=== PATIENT | female | born 1975 | race Caucasian/White ===

== ENCOUNTER 2018-09-27 03:24 | Emergency (ER) | payer OTHER ==
[~2018-09-27] VITALS: Ht 167.6 cm; Wt 106.1 kg
[~2018-09-27 03:24] MED LIST: ALOG1TAB5 PO; DIAZ5TAB4 PO; GABA-586 PO; GABA300C8; LANS30CA66 PO; LISI-334 PO; LISI-338 PO; METF500T16 PO; METH10TA2 PO; MILN50TA PO; PHEN37.5 PO; PROM25TA10 PO
--- NOTE | 2018-09-27 03:31 | ED.ADGEN ---
Past History Past Medical History: Anxiety, Bronchitis, Depression, Diabetes, Fibromyalgia, Hypertension, IBS, Migraines, UTI, Other Past Surgical History: , Other Smoking: Cigarettes Alcohol Use: None Drug Use: None Adult General Chief Complaint Chief Complaint ".. My jaw is killing ,,,,, my face is swollen... my teeth in the back have rotted into my gums.. .. I feel like shit.. .. fever.. chest pain.. my sugars are probably up.. it 's my fault.. . I know.. I quit taking my meds... because ... I was tired of taking.. .. them....." .." I ve got severe fibromyalgia. .. " HPI HPI Patient is a 42 year old female who presents with above hx of multiple complaints with primary complaints of dental pain. Pt. has decay of teeth 17, 18 into the gums and surrounding edema. Pt. has multiple other areas of decay. Pt. has facial edema and adenopathy at angle mandible on Lt. Pt. hx HTN, DM, MS, Fibromyalgia, Depression, Anxiety and Non-compliance. Pt. follows with Dr. Higuera. Pt. states her tetanus was up dated last year. Pt. denies any specific immunosuppression disorder, hx trauma, recent travel or ill contacts. Pt. is some what poor historian. Pt. very emotional and at times uncooperative. Pt was eating before arrival and that was what causes her increased dental pain. Review of Systems Review of Systems Constitutional: Complaints of fever or chills [] Eyes: Denies change in visual acuity, redness, or eye pain [] HENT: Denies nasal congestion or sore throat []Complaints of dental pain. Respiratory: Complaints of wheezing and cough Cardiovascular: No additional information not addressed in HPI [] GI: Denies abdominal pain, nausea, vomiting, bloody stools or diarrhea [] : Denies dysuria or hematuria [] Musculoskeletal: Complaints of generalized fibromyalgia , entire body, back pain and joint pain [] Integument: Denies rash or skin lesions [] Neurologic: Denies headache, focal weakness or sensory changes [] Endocrine: Denies polyuria or polydipsia [] All other systems were reviewed and found to be within normal limits, except as documented in this note. Family History Family History DM, HTN Current Medications Current Medications Current Medications Medications (Trade) Dose Ordered Sig/Diaz Start Time Stop Time Status Last Admin Dose Admin Ceftriaxone Sodium (Rocephin Im) 1 gm 1X ONCE 09/27/18 04:00 09/27/18 04:01 DC 09/27/18 03:56 1 GM Hydrocodone Bitartrate/ Ibuprofen (Vicoprofen 7.5-200) 2 tab 1X ONCE 09/27/18 04:30 09/27/18 04:31 DC 09/27/18 05:07 2 TAB Insulin Human Regular (HumuLIN R VIAL) 10 unit 1X ONCE 09/27/18 05:30 09/27/18 05:31 DC 09/27/18 05:34 10 UNIT Lactated Ringer's 1,000 ml @ 1,000 mls/hr Q1H 09/27/18 04:00 09/27/18 04:59 DC 09/27/18 04:37 1,000 MLS/HR Lidocaine HCl 20 ml 1X ONCE 09/27/18 04:30 09/27/18 04:31 DC 09/27/18 04:39 20 ML Lisinopril (Prinivil) 10 mg 1X ONCE 09/27/18 04:00 09/27/18 04:01 DC 09/27/18 04:36 10 MG Magnesium Hydroxide (Milk Of Magnesia) 2,400 mg 1X ONCE 09/27/18 05:30 09/27/18 05:31 DC 09/27/18 05:30 2,400 MG Metronidazole 100 ml @ 100 mls/hr 1X ONCE 09/27/18 04:00 09/27/18 04:59 DC 09/27/18 04:37 100 MLS/HR Morphine Sulfate (Morphine 10mg Syringe) 10 mg 1X ONCE 09/27/18 04:00 09/27/18 04:01 DC 09/27/18 03:49 10 MG Ondansetron HCl (Zofran) 8 mg 1X ONCE 09/27/18 05:30 09/27/18 05:31 DC 09/27/18 05:31 8 MG Allergies Allergies Allergies Coded Allergies Type Severity Reaction Last Updated Verified No Known Drug Allergies 08/19/14 No Physical Exam Physical Exam Constitutional: Reports acute distress, non-toxic appearance. [] HENT: Normocephalic, atraumatic, bilateral external ears normal, oropharynx moist, no oral exudates, nose normal. []Multiple dental caries and gingivitis. Mild Lt.Facial edema. Adenopathy mandible angle lt. Pt. has increased pain on percussion of area of t teeth 17 &18 (decay into gum line). Eyes: PERRLA, EOMI, conjunctiva normal, no discharge. [] Neck: Normal range of motion, no tenderness, supple, no stridor. [] Cardiovascular:Heart rate regular rhythm, no murmur []PMI to Lt. Lungs & Thorax: Bilateral breath sounds equal with scattered wheezes on a uscultation [] Abdomen: Bowel sounds normal, soft, no tenderness, no masses, no pulsatile masses. [] Obese. Old scar. Distended. Skin: Warm, dry, no erythema, no rash. [] Back: No tenderness, no CVA tenderness. [] Extremities: Pt. reports all her limbs are constantly tender for years, , no cyanosis, no clubbing, ROM intact, no edema. [] Large scar. lt savage. Neurologic: Alert and oriented X 3, normal motor function, normal sensory function, no focal deficits noted. [] Psychologic: Affect anxious, judgement normal, mood depressed. Very emotional and dramatic in complaints. Current Patient Data Vital Signs Vital Signs Date Time Temp Pulse Resp B/P (MAP) Pulse Ox O2 Delivery O2 Flow Rate FiO2 09/27/18 06:02 99 18 99 09/27/18 04:36 184/114 09/27/18 03:49 Room Air 09/27/18 03:25 98.7 Lab Results Laboratory Tests Test 09/27/18 04:10 09/27/18 05:00 09/27/18 05:21 09/27/18 05:31 White Blood Count 12.5 x10^3/uL (4.0-11.0) H Red Blood Count 4.71 x10^6/uL (3.50-5.40) Hemoglobin 14.1 g/dL (12.0-15.5) Hematocrit 43.5 % (36.0-47.0) Mean Corpuscular Volume 92 fL (79-100) Mean Corpuscular Hemoglobin 30 pg (25-35) Mean Corpuscular Hemoglobin Concent 32 g/dL (31-37) Red Cell Distribution Width 14.8 % (11.5-14.5) H Platelet Count 163 x10^3/uL (140-400) Neutrophils (%) (Auto) 62 % (31-73) Lymphocytes (%) (Auto) 30 % (24-48) Monocytes (%) (Auto) 6 % (0-9) Eosinophils (%) (Auto) 2 % (0-3) Basophils (%) (Auto) 1 % (0-3) Neutrophils # (Auto) 7.7 x10^3uL (1.8-7.7) Lymphocytes # (Auto) 3.7 x10^3/uL (1.0-4.8) Monocytes # (Auto) 0.8 x10^3/uL (0.0-1.1) Eosinophils # (Auto) 0.2 x10^3/uL (0.0-0.7) Basophils # (Auto) 0.1 x10^3/uL (0.0-0.2) Prothrombin Time 9.9 SEC (9.4-11.4) Prothrombin Time INR 1.0 (0.9-1.1) PTT 24 SEC (23-33) Sodium Level 137 mmol/L (136-145) Potassium Level 4.2 mmol/L (3.5-5.1) Chloride Level 99 mmol/L (98-107) Carbon Dioxide Level 28 mmol/L (21-32) Anion Gap 10 (6-14) Blood Urea Nitrogen 16 mg/dL (7-20) Creatinine 0.9 mg/dL (0.6-1.0) Estimated GFR (Cockcroft-Gault) 68.7 Glucose Level 366 mg/dL (70-99) H Calcium Level 9.4 mg/dL (8.5-10.1) Magnesium Level 1.5 mg/dL (1.8-2.4) L Total Bilirubin 0.3 mg/dL (0.2-1.0) Direct Bilirubin 0.1 mg/dL (0.0-0.2) Aspartate Amino Transferase (AST) 14 U/L (15-37) L Alanine Aminotransferase (ALT) 31 U/L (14-59) Alkaline Phosphatase 85 U/L (46-116) Creatine Kinase 32 U/L (26-192) Troponin I Quantitative < 0.017 ng/mL (0-0.055) JK-Qps-Z-Type Natriuretic Peptide 7 pg/mL (0-124) Total Protein 7.4 g/dL (6.4-8.2) Albumin 3.9 g/dL (3.4-5.0) Lipase 113 U/L (73-393) Urine Collection Type Unknown Urine Color Yellow Urine Clarity Clear Urine pH 6.0 Urine Specific [place] 1.015 Urine Protein Neg (NEG-TRACE) Urine Glucose (UA) 500 mg/dL (NEG) Urine Ketones (Stick) Neg mg/dL (NEG) Urine Blood Trace (NEG) Urine Nitrite Neg (NEG) Urine Bilirubin Neg (NEG) Urine Urobilinogen Dipstick 0.2 mg/dL (0.2 mg/dL) Urine Leukocyte Esterase Neg (NEG) Urine RBC 0 /HPF (0-2) Urine WBC 0 /HPF (0-4) Urine Squamous Epithelial Cells Occ /LPF Urine Bacteria 0 /HPF (0-FEW) Urine Opiates Screen Pos (NEG) Urine Methadone Screen Pos (NEG) Urine Barbiturates Neg (NEG) Urine Phencyclidine Screen Neg (NEG) Urine Amphetamine/Methamphetamine Neg (NEG) Urine Benzodiazepines Screen Neg (NEG) Urine Cocaine Screen Neg (NEG) Urine Cannabinoids Screen Neg (NEG) Urine Ethyl Alcohol Neg (NEG) POC Urine HCG, Qualitative hcg negative (Negative) Glucose (Fingerstick) 352 mg/dL (70-99) H Test 09/27/18 06:02 Glucose (Fingerstick) 286 mg/dL (70-99) H EKG EKG My interpretation EKG shows sinus rhythm at 82 bpm. No acute morphology such as acute STEMI with contralateral changes[] Radiology/Procedures Radiology/Procedures My interpretation of CXR - no acute cardio pulmonary changes[] Course & Med Decision Making Course & Med Decision Making Pertinent Labs and Imaging studies reviewed. (See chart for details). Pt. endorse to Dr. Clay at shift change if pt. does not discharge prior to 0600. [] Final Impression Final Impression 1. Dental Pain- multiple caries 2. Accelerated HTN 3. DM= 366 4. Leukocytosis- 12.5 5. Hypomagnesium 1.5 6. Tobacco use 7. Non- compliant 8. Appears to have narcotic seeking behavior 9. Drug screen + for opiates and Methadone [] Dragon Disclaimer Dragon Disclaimer This electronic medical record was generated, in whole or in part, using a voice recognition dictation system. Discharge Summary Visit Information Final Diagnosis Problems Medical Problems: (1) Diabetes Status: Acute (2) Hypertension Status: Acute (3) Pain due to dental caries Status: Acute (4) Pain, dental Status: Acute Brief Hospital Course Allergies Allergies Coded Allergies Type Severity Reaction Last Updated Verified No Known Drug Allergies 08/19/14 No Vital Signs Vital Signs Date Time Temp Pulse Resp B/P (MAP) Pulse Ox O2 Delivery O2 Flow Rate FiO2 09/27/18 06:02 99 18 99 09/27/18 04:36 184/114 09/27/18 03:49 Room Air 09/27/18 03:25 98.7 Lab Results Laboratory Tests Test 09/27/18 04:10 09/27/18 05:00 09/27/18 05:21 09/27/18 05:31 White Blood Count 12.5 x10^3/uL (4.0-11.0) Red Blood Count 4.71 x10^6/uL (3.50-5.40) Hemoglobin 14.1 g/dL (12.0-15.5) Hematocrit 43.5 % (36.0-47.0) Mean Corpuscular Volume 92 fL (79-100) Mean Corpuscular Hemoglobin 30 pg (25-35) Mean Corpuscular Hemoglobin Concent 32 g/dL (31-37) Red Cell Distribution Width 14.8 % (11.5-14.5) Platelet Count 163 x10^3/uL (140-400) Neutrophils (%) (Auto) 62 % (31-73) Lymphocytes (%) (Auto) 30 % (24-48) Monocytes (%) (Auto) 6 % (0-9) Eosinophils (%) (Auto) 2 % (0-3) Basophils (%) (Auto) 1 % (0-3) Neutrophils # (Auto) 7.7 x10^3uL (1.8-7.7) Lymphocytes # (Auto) 3.7 x10^3/uL (1.0-4.8) Monocytes # (Auto) 0.8 x10^3/uL (0.0-1.1) Eosinophils # (Auto) 0.2 x10^3/uL (0.0-0.7) Basophils # (Auto) 0.1 x10^3/uL (0.0-0.2) Prothrombin Time 9.9 SEC (9.4-11.4) Prothromb Time International Ratio 1.0 (0.9-1.1) Activated Partial Thromboplast Time 24 SEC (23-33) Sodium Level 137 mmol/L (136-145) Potassium Level 4.2 mmol/L (3.5-5.1) Chloride Level 99 mmol/L (98-107) Carbon Dioxide Level 28 mmol/L (21-32) Anion Gap 10 (6-14) Blood Urea Nitrogen 16 mg/dL (7-20) Creatinine 0.9 mg/dL (0.6-1.0) Estimated GFR (Cockcroft-Gault) 68.7 Glucose Level 366 mg/dL (70-99) Calcium Level 9.4 mg/dL (8.5-10.1) Magnesium Level 1.5 mg/dL (1.8-2.4) Total Bilirubin 0.3 mg/dL (0.2-1.0) Direct Bilirubin 0.1 mg/dL (0.0-0.2) Aspartate Amino Transf (AST/SGOT) 14 U/L (15-37) Alanine Aminotransferase (ALT/SGPT) 31 U/L (14-59) Alkaline Phosphatase 85 U/L (46-116) Creatine Kinase 32 U/L (26-192) Troponin I Quantitative < 0.017 ng/mL (0-0.055) GU-Zok-M-Type Natriuretic Peptide 7 pg/mL (0-124) Total Protein 7.4 g/dL (6.4-8.2) Albumin 3.9 g/dL (3.4-5.0) Lipase 113 U/L (73-393) Urine Collection Type Unknown Urine Color Yellow Urine Clarity Clear Urine pH 6.0 Urine Specific [place] 1.015 Urine Protein Neg (NEG-TRACE) Urine Glucose (UA) 500 mg/dL (NEG) Urine Ketones (Stick) Neg mg/dL (NEG) Urine Blood Trace (NEG) Urine Nitrite Neg (NEG) Urine Bilirubin Neg (NEG) Urine Urobilinogen Dipstick 0.2 mg/dL (0.2 mg/dL) Urine Leukocyte Esterase Neg (NEG) Urine RBC 0 /HPF (0-2) Urine WBC 0 /HPF (0-4) Urine Squamous Epithelial Cells Occ /LPF Urine Bacteria 0 /HPF (0-FEW) Urine Opiates Screen Pos (NEG) Urine Methadone Screen Pos (NEG) Urine Barbiturates Neg (NEG) Urine Phencyclidine Screen Neg (NEG) Urine Amphetamine/Methamphetamine Neg (NEG) Urine Benzodiazepines Screen Neg (NEG) Urine Cocaine Screen Neg (NEG) Urine Cannabinoids Screen Neg (NEG) Urine Ethyl Alcohol Neg (NEG) Bedside Urine HCG, Qualitative hcg negative (Negative) Glucose (Fingerstick) 352 mg/dL (70-99) Test 09/27/18 06:02 Glucose (Fingerstick) 286 mg/dL (70-99) Brief Hospital Course Ms. Lara is a 42 old female who presented with 100/10 dental pain in teeth area 17, 18. Discharge Information Dischare Medications Current Medications Morphine Sulfate (Morphine 10mg Syringe) 10 mg 1X ONCE SQ Last administered on 09/27/18at 03:49; Admin Dose 10 MG; Start 09/27/18 at 04:00; Stop 09/27/18 at 04:01; Status DC Lisinopril (Prinivil) 10 mg 1X ONCE PO Last administered on 09/27/18at 04:36; Admin Dose 10 MG; Start 09/27/18 at 04:00; Stop 09/27/18 at 04:01; Status DC Ceftriaxone Sodium (Rocephin Im) 1 gm 1X ONCE IM Last administered on 09/27/18at 03:56; Admin Dose 1 GM; Start 09/27/18 at 04:00; Stop 09/27/18 at 04:01; Status DC Lactated Ringer's 1,000 ml @ 1,000 mls/hr Q1H IV Last administered on 09/27/18at 04:37; Admin Dose 1,000 MLS/HR; Start 09/27/18 at 04:00; Stop 09/27/18 at 04:59; Status DC Metronidazole 100 ml @ 100 mls/hr 1X ONCE IV Last administered on 09/27/18at 04:37; Admin Dose 100 MLS/HR; Start 09/27/18 at 04:00; Stop 09/27/18 at 04:59; Status DC Lidocaine HCl 20 ml STK-MED ONCE .ROUTE ; Start 09/27/18 at 03:45; Stop 09/27/18 at 03:46; Status DC Lidocaine HCl 20 ml 1X ONCE IJ Last administered on 09/27/18at 04:39; Admin Dose 20 ML; Start 09/27/18 at 04:30; Stop 09/27/18 at 04:31; Status DC Hydrocodone Bitartrate/ Ibuprofen (Vicoprofen 7.5-200) 2 tab 1X ONCE PO Last administered on 09/27/18at 05:07; Admin Dose 2 TAB; Start 09/27/18 at 04:30; Stop 09/27/18 at 04:31; Status DC Ondansetron HCl (Zofran) 8 mg 1X ONCE IV Last administered on 09/27/18at 05:31; Admin Dose 8 MG; Start 09/27/18 at 05:30; Stop 09/27/18 at 05:31; Status DC Insulin Human Regular (HumuLIN R VIAL) 10 unit 1X ONCE IV Last administered on 09/27/18at 05:34; Admin Dose 10 UNIT; Start 09/27/18 at 05:30; Stop 09/27/18 at 05:31; Status DC Magnesium Hydroxide (Milk Of Magnesia) 2,400 mg 1X ONCE PO Last administered on 09/27/18at 05:30; Admin Dose 2,400 MG; Start 09/27/18 at 05:30; Stop 09/27/18 at 05:31; Status DC Active Scripts Active Hydrocodone-Ibuprofen 7.5-200 (Hydrocodone/Ibuprofen) 1 Each Tablet 1 Tab PO PRN Q6HRS PRN Lisinopril 10 Mg Tablet 1 Tab PO DAILY Flagyl (Metronidazole) 500 Mg Tablet 500 Mg PO TID Keflex (Cephalexin) 500 Mg Capsule 500 Mg PO TID 10 Days Prevacid (Lansoprazole) 30 Mg Capsule. 1 Cap PO DAILY Lisinopril 5 Mg Tablet 1 Tab PO DAILY Metformin Hcl 500 Mg Tablet 1 Tab PO BID Reported Gabapentin (Gabapentin) 300 Mg Capsule 300 Mg PO TID Diazepam 5 Mg Tablet 5 Mg PO TID PRN Methadone Hcl 10 Mg Tablet 10 Mg PO Q8HRS Promethazine Hcl 25 Mg Tablet 12 Mg PO PRN Q8HRS Phentermine Hcl 37.5 Mg Tablet 37.5 Mg PO Q12HR Savella (Milnacipran Hcl) 50 Mg Tablet 50 Mg PO BID Ayden Disclaimer This chart was dictated in whole or in part using Voice Recognition software in a busy, high-work load, and often noisy Emergency Department environment. It may contain unintended and wholly unrecognized errors or omissions. ALYSSA POOLE MD Sep 27, 2018 03:31
[2018-09-27] MEDS ORDERED: LIDOCAINE 1% Multi-Dose 20 ML VIAL. ONE (03:45)
[2018-09-27] MEDS ORDERED: IV RINGERS SOLUTION,LACTATED 1,000 ML IV SCH (04:00)
[2018-09-27] MEDS ORDERED: cefTRIAXone IM 1 GM VIAL IM ONE (04:00)
[2018-09-27] MEDS ORDERED: LISINOPRIL 10 MG TABLET PO ONE (04:00)
[2018-09-27] MEDS ORDERED: MORPHINE SULFATE 10 MG/ML SYRINGE. SQ ONE (04:00)
[2018-09-27] MEDS ORDERED: LIDOCAINE 1% Multi-Dose 20 ML VIAL. IJ ONE (04:30)
[2018-09-27] MEDS ORDERED: HYDROcodon/IBUPROFEN 7.5/200MG 1 TAB TABLET PO ONE (04:30)
[2018-09-27 04:33] LABS: BASO # 0.1 x10^3/uL (0.0-0.2); BASO % 1 % (0-3); EOS # 0.2 x10^3/uL (0.0-0.7); EOS % 2 % (0-3); HEMATOCRIT 43.5 % (36.0-47.0); HEMOGLOBIN 14.1 g/dL (12.0-15.5); LYMPH # 3.7 x10^3/uL (1.0-4.8); LYMPH % 30 % (24-48); MEAN CORPUSCULAR HEMOGLOBIN 30 pg (25-35); MEAN CORPUSCULAR HGB CONC 32 g/dL (31-37); MEAN CORPUSCULAR VOLUME 92 fL (79-100); MONO # 0.8 x10^3/uL (0.0-1.1); MONO % 6 % (0-9); NEUT # 7.7 x10^3uL (1.8-7.7); NEUT % 62 % (31-73); PLATELET COUNT 163 x10^3/uL (140-400); RED BLOOD COUNT 4.71 x10^6/uL (3.50-5.40); RED CELL DISTRIBUTION WIDTH 14.8 % (11.5-14.5); WHITE BLOOD COUNT 12.5 x10^3/uL (4.0-11.0)
[2018-09-27 04:57] LABS: ALBUMIN 3.9 g/dL (3.4-5.0); CALCIUM 9.4 mg/dL (8.5-10.1); CREATININE 0.9 mg/dL (0.6-1.0); GFR 68.7; POTASSIUM 4.2 mmol/L (3.5-5.1); TOTAL BILIRUBIN 0.3 mg/dL (0.2-1.0); TOTAL PROTEIN 7.4 g/dL (6.4-8.2)
[2018-09-27 04:58] LABS: DIRECT BILIRUBIN 0.1 mg/dL (0.0-0.2); MAGNESIUM 1.5 mg/dL (1.8-2.4)
[2018-09-27 05:24] LABS: BILIRUBIN,URINE NEG (NEG); CLARITY,URINE CLEAR; COLOR,URINE YELLOW; GLUCOSE,URINE 500 mg/dL (NEG)
[2018-09-27 05:25] LABS: BACTERIA,URINE 0 /HPF (0-FEW); NITRITE,URINE NEG (NEG); RBC,URINE 0 /HPF (0-2); SQUAMOUS EPITHELIAL CELL,UR OCC /LPF; UROBILINOGEN,URINE 0.2 mg/dL (0.2 mg/dL); WBC,URINE 0 /HPF (0-4)
[2018-09-27] MEDS ORDERED: ONDANSETRON PF 4 MG/2 ML VIAL. IV ONE (05:30)
[2018-09-27] MEDS ORDERED: MAGNESIUM HYDROXIDE 2,400 MG/30 ML ORAL.SUSP. PO ONE (05:30)
[2018-09-27] MEDS ORDERED: INSULIN REGULAR 100 UNIT/ML 3ML VIAL. IV ONE (05:30)
[2018-09-27 05:35] LABS: AMPHETAMINE/METHAMPHETAMINE NEG (NEG); BARBITURATES NEG (NEG); BENZODIAZEPINES NEG (NEG); CANNABINOIDS NEG (NEG); COCAINE NEG (NEG); METHADONE POS (NEG); OPIATES POS (NEG); PHENCYCLIDINE NEG (NEG)
[2018-09-27] MEDS ORDERED: METR500T PO (05:35)
[2018-09-27] MEDS ORDERED: LISI10TA2 PO (05:35)
[2018-09-27] MEDS ORDERED: CEPH-264 PO (05:35)
[2018-09-27] MEDS ORDERED: HYDR-1179 PO (05:43)
[2018-09-27 06:02] VITALS: BP 178/94
--- NOTE | 2018-09-27 06:19 | RAD ---
CHEST PA LATERAL History: Chest pain Comparison: Two-view chest, December 24, 2016. Findings: The cardiomediastinal silhouette is normal. Pulmonary vasculature is normal. The lungs are clear. No pleural effusion or pneumothorax is seen. There is no acute bone abnormality. IMPRESSION: No acute cardiopulmonary process. Electronically signed by: Patrick Dela Cruz MD (09/27/2018 6:16 AM) [id number]
--- NOTE | 2018-09-27 14:22 | EKG ---
[address] [address] Test Date: 2018-09-27 Test Time: 04:04:40 Pat Name: HYUN PULIDO Department: Room: Gender: F Corrugated Sheet Material Sheeter: JAKE : 1975 Requested By: ALYSSA POOLE Order Number: [id number] Reading MD: Measurements Intervals Center Line Rate: 82 P: 0 AK: 154 QRS: 14 QRSD: 78 T: 54 QT: 366 QTc: 431 Interpretive Statements SINUS RHYTHM NORMAL ECG RI6.01 No previous ECG available for comparison
== END 2018-09-27 06:21 | disposition left against medical advice (07) ==
LOC: ER 03:24
DX: K02.9 Dental caries, unspecified (principal); I10 Essential (primary) hypertension; E11.9 Type 2 diabetes mellitus without complications; D72.829 Elevated white blood cell count, unspecified; E83.42 Hypomagnesemia; Z91.19 Patient's noncompliance with other medical treatment and regimen; F11.90 Opioid use, unspecified, uncomplicated; F15.90 Other stimulant use, unspecified, uncomplicated; M79.7 Fibromyalgia; K58.9 Irritable bowel syndrome, unspecified; F17.210 Nicotine dependence, cigarettes, uncomplicated; G43.909 Migraine, unspecified, not intractable, without status migrainosus; Z87.440 Personal history of urinary (tract) infections; Z98.890 Other specified postprocedural states; Z79.899 Other long term (current) drug therapy
CPT/HCPCS: 36415; 71046; 80048; 80076; 80307; 81001; 81025; 82550; 82947; 83690; 83735; 83880; 84484; 85025; 85610; 85730; 87040; 93005; 96365; 96372; 96375; 99285; J0696; J1815; J2270; J2405; J3490; J7120

== ENCOUNTER 2018-10-11 02:12 | Observation (INO) | payer OTHER ==
[~2018-10-11] VITALS: Ht 167.6 cm; Wt 110.0 kg
--- NOTE | 2018-10-11 02:04 | ED.ADGEN ---
Past History Past Medical History: Anxiety, Bronchitis, COPD, Depression, Diabetes, Fibromyalgia, High Cholesterol, Hypertension, IBS, Migraines, UTI, Other Past Surgical History: , Other Smoking: Cigarettes Alcohol Use: None Drug Use: None Adult General Chief Complaint Chief Complaint ".. I having chest pain... my diabetes in out of control... I got dental pain... I am just a mess" [facility] HPI Patient is a 42 year old female who presents with above hx and complaints dyspnea and chest pain. Patient localizes pain in center chest. There is some exacerbation with deep breaths and cough. Patient rates her pain as severe. Patient rises she's had exacerbation of her diabetes. Sugars are out of control despite of taking her metformin. Patient does continue to smoke. No recent travel. No specific ill contacts. Denies other drug use then tobacco. Patient normally follows with Dr. Higuera. Patient has chronic pain from fibromyalgia. Patient has history of long-standing diabetes, hypertension, irritable bowel syndrome, anxiety, elevated cholesterol, chronic bronchitis, depression and anxiety disorder. Hx of and deliveries. Review of Systems Review of Systems Constitutional: Denies fever or chills [] Eyes: Denies change in visual acuity, redness, or eye pain [] HENT: Denies nasal congestion or sore throat []Complaints of dental pain. Respiratory: Complains of shortness of breath []and wheezing Cardiovascular: No additional information not addressed in HPI [] GI: Denies abdominal pain, nausea, vomiting, bloody stools or diarrhea [] : Denies dysuria or hematuria [] Musculoskeletal: Complaints of chronic joint pain [] Integument: Denies rash or skin lesions [] Neurologic: Denies headache, focal weakness or sensory changes [] Endocrine: Denies polyuria or polydipsia [] All other systems were reviewed and found to be within normal limits, except as documented in this note. Family History Family History Cardiac, diabetes, hypertension and COPD Current Medications Current Medications Current Medications Medications (Trade) Dose Ordered Sig/Diaz Start Time Stop Time Status Last Admin Dose Admin Aspirin (Children'S Aspirin) 324 mg 1X ONCE 10/11/18 02:30 10/11/18 02:31 DC 10/11/18 02:45 324 MG Enoxaparin Sodium (Lovenox 100mg Syringe) 100 mg 1X ONCE 10/11/18 03:00 10/11/18 03:01 DC 10/11/18 02:45 100 MG Lactated Ringer's 1,000 ml @ 1,000 mls/hr Q1H 10/11/18 02:30 10/11/18 03:29 DC 10/11/18 02:46 1,000 MLS/HR See nursing for home medications Allergies Allergies Allergies Coded Allergies Type Severity Reaction Last Updated Verified No Known Drug Allergies 08/19/14 No Physical Exam Physical Exam - Constitutional: Moderately acute distress, non-toxic appearance. [] HENT: Normocephalic, atraumatic, bilateral external ears normal, oropharynx moist, no oral exudates, nose normal. []Poor dentition. Dental caries. Eyes: PERRLA, EOMI, conjunctiva normal, no discharge. [] Neck: Normal range of motion, no tenderness, supple, no stridor. [] Cardiovascular: Tachycardia Heart rate regular rhythm, no murmur []PMI to the left Lungs & Thorax: Bilateral breath sounds scattered wheezes throughout on auscultation [] Abdomen: Bowel sounds normal, soft, no tenderness, no masses, no pulsatile masses. [] Obese. Old surgery scar. Skin: Warm, dry, no erythema, no rash. []Cat Head tattoo Rt portillo, Large Scar on Left Portillo. No cording appreciated Back: No tenderness, no CVA tenderness. [] Extremities: Patient complains of generalized muscle and joint tenderness- chronic, no cyanosis, no clubbing, ROM intact, no edema. [] Neurologic: Alert and oriented X 3, moves all extremities on request,, distal sensory function, no focal deficits noted. [] Psychologic: Affect anxious, judgement normal, mood depressed Current Patient Data Vital Signs Vital Signs Date Time Temp Pulse Resp B/P (MAP) Pulse Ox O2 Delivery O2 Flow Rate FiO2 10/11/18 02:24 99.0 112 18 98 Room Air 10/11/18 02:14 130/79 (96) Lab Results Laboratory Tests Test 10/11/18 02:21 10/11/18 02:35 10/11/18 03:01 White Blood Count 12.2 x10^3/uL (4.0-11.0) H Red Blood Count 4.48 x10^6/uL (3.50-5.40) Hemoglobin 13.4 g/dL (12.0-15.5) Hematocrit 41.2 % (36.0-47.0) Mean Corpuscular Volume 92 fL (79-100) Mean Corpuscular Hemoglobin 30 pg (25-35) Mean Corpuscular Hemoglobin Concent 33 g/dL (31-37) Red Cell Distribution Width 14.1 % (11.5-14.5) Platelet Count 191 x10^3/uL (140-400) Neutrophils (%) (Auto) 60 % (31-73) Lymphocytes (%) (Auto) 33 % (24-48) Monocytes (%) (Auto) 5 % (0-9) Eosinophils (%) (Auto) 1 % (0-3) Basophils (%) (Auto) 1 % (0-3) Neutrophils # (Auto) 7.3 x10^3uL (1.8-7.7) Lymphocytes # (Auto) 4.1 x10^3/uL (1.0-4.8) Monocytes # (Auto) 0.6 x10^3/uL (0.0-1.1) Eosinophils # (Auto) 0.2 x10^3/uL (0.0-0.7) Basophils # (Auto) 0.1 x10^3/uL (0.0-0.2) Prothrombin Time 10.2 SEC (9.4-11.4) Prothrombin Time INR 1.0 (0.9-1.1) PTT 23 SEC (23-33) D-Dimer (Leta) 0.34 mg/L (0.00-0.50) Sodium Level 135 mmol/L (136-145) L Potassium Level 3.6 mmol/L (3.5-5.1) Chloride Level 99 mmol/L (98-107) Carbon Dioxide Level 27 mmol/L (21-32) Anion Gap 9 (6-14) Blood Urea Nitrogen 14 mg/dL (7-20) Creatinine 1.2 mg/dL (0.6-1.0) H Estimated GFR (Cockcroft-Gault) 49.3 Glucose Level 410 mg/dL (70-99) H Calcium Level 9.2 mg/dL (8.5-10.1) Magnesium Level 1.4 mg/dL (1.8-2.4) L Total Bilirubin 0.3 mg/dL (0.2-1.0) Direct Bilirubin 0.1 mg/dL (0.0-0.2) Aspartate Amino Transferase (AST) 22 U/L (15-37) Alanine Aminotransferase (ALT) 34 U/L (14-59) Alkaline Phosphatase 76 U/L (46-116) Creatine Kinase 54 U/L (26-192) Troponin I Quantitative < 0.017 ng/mL (0-0.055) BY-Gbj-R-Type Natriuretic Peptide 17 pg/mL (0-124) Total Protein 7.3 g/dL (6.4-8.2) Albumin 3.6 g/dL (3.4-5.0) Lipase 132 U/L (73-393) Urine Collection Type Unknown Urine Color Yellow Urine Clarity Clear Urine pH 5.5 Urine Specific [place] 1.015 Urine Protein Neg (NEG-TRACE) Urine Glucose (UA) >=1000 mg/dL (NEG) Urine Ketones (Stick) Neg mg/dL (NEG) Urine Blood Trace (NEG) Urine Nitrite Neg (NEG) Urine Bilirubin Neg (NEG) Urine Urobilinogen Dipstick 0.2 mg/dL (0.2 mg/dL) Urine Leukocyte Esterase Neg (NEG) Urine RBC 1-2 /HPF (0-2) Urine WBC 1-4 /HPF (0-4) Urine Squamous Epithelial Cells Few /LPF Urine Bacteria 0 /HPF (0-FEW) POC Urine HCG, Qualitative hcg negative (Negative) EKG EKG My interpretation EKG shows a sinus tachycardia at 110. There is some nonspecific anterior septal changes. But no findings of acute STEMI with contralateral changes[] Radiology/Procedures Radiology/Procedures My interpretation of chest x-ray shows normal cardiac silhouette, some mild bronchial cuffing.[] No Large infiltrates Course & Med Decision Making Course & Med Decision Making Pertinent Labs and Imaging studies reviewed. (See chart for details) Patient admitted to Dr. Reese for further eval and tx. Consult to cardiology. Pt. will be placed on Insulin qtt. ( not currently in DKA. ) Note to nursing to not give metformin. [] Final Impression Final Impression 1. Chest Pain 2. DM - Hyperglycemia 410 3. Leukocytosis 12.2 4. Dyspnea 5. Elevated Lipids 6. HTN 7. Tobacco Use 8. Elevated Creat. 1.2 9. Bronchitis Dragon Disclaimer Dragon Disclaimer This electronic medical record was generated, in whole or in part, using a voice recognition dictation system. Discharge Summary Visit Information Final Diagnosis Problems Medical Problems: (1) Chest pain Status: Acute Brief Hospital Course Allergies Allergies Coded Allergies Type Severity Reaction Last Updated Verified No Known Drug Allergies 08/19/14 No Vital Signs Vital Signs Date Time Temp Pulse Resp B/P (MAP) Pulse Ox O2 Delivery O2 Flow Rate FiO2 10/11/18 02:24 99.0 112 18 98 Room Air 10/11/18 02:14 130/79 (96) Lab Results Laboratory Tests Test 10/11/18 02:21 10/11/18 02:35 10/11/18 03:01 White Blood Count 12.2 x10^3/uL (4.0-11.0) Red Blood Count 4.48 x10^6/uL (3.50-5.40) Hemoglobin 13.4 g/dL (12.0-15.5) Hematocrit 41.2 % (36.0-47.0) Mean Corpuscular Volume 92 fL (79-100) Mean Corpuscular Hemoglobin 30 pg (25-35) Mean Corpuscular Hemoglobin Concent 33 g/dL (31-37) Red Cell Distribution Width 14.1 % (11.5-14.5) Platelet Count 191 x10^3/uL (140-400) Neutrophils (%) (Auto) 60 % (31-73) Lymphocytes (%) (Auto) 33 % (24-48) Monocytes (%) (Auto) 5 % (0-9) Eosinophils (%) (Auto) 1 % (0-3) Basophils (%) (Auto) 1 % (0-3) Neutrophils # (Auto) 7.3 x10^3uL (1.8-7.7) Lymphocytes # (Auto) 4.1 x10^3/uL (1.0-4.8) Monocytes # (Auto) 0.6 x10^3/uL (0.0-1.1) Eosinophils # (Auto) 0.2 x10^3/uL (0.0-0.7) Basophils # (Auto) 0.1 x10^3/uL (0.0-0.2) Prothrombin Time 10.2 SEC (9.4-11.4) Prothromb Time International Ratio 1.0 (0.9-1.1) Activated Partial Thromboplast Time 23 SEC (23-33) D-Dimer (Leta) 0.34 mg/L (0.00-0.50) Sodium Level 135 mmol/L (136-145) Potassium Level 3.6 mmol/L (3.5-5.1) Chloride Level 99 mmol/L (98-107) Carbon Dioxide Level 27 mmol/L (21-32) Anion Gap 9 (6-14) Blood Urea Nitrogen 14 mg/dL (7-20) Creatinine 1.2 mg/dL (0.6-1.0) Estimated GFR (Cockcroft-Gault) 49.3 Glucose Level 410 mg/dL (70-99) Calcium Level 9.2 mg/dL (8.5-10.1) Magnesium Level 1.4 mg/dL (1.8-2.4) Total Bilirubin 0.3 mg/dL (0.2-1.0) Direct Bilirubin 0.1 mg/dL (0.0-0.2) Aspartate Amino Transf (AST/SGOT) 22 U/L (15-37) Alanine Aminotransferase (ALT/SGPT) 34 U/L (14-59) Alkaline Phosphatase 76 U/L (46-116) Creatine Kinase 54 U/L (26-192) Troponin I Quantitative < 0.017 ng/mL (0-0.055) ZE-Yrf-U-Type Natriuretic Peptide 17 pg/mL (0-124) Total Protein 7.3 g/dL (6.4-8.2) Albumin 3.6 g/dL (3.4-5.0) Lipase 132 U/L (73-393) Urine Collection Type Unknown Urine Color Yellow Urine Clarity Clear Urine pH 5.5 Urine Specific [place] 1.015 Urine Protein Neg (NEG-TRACE) Urine Glucose (UA) >=1000 mg/dL (NEG) Urine Ketones (Stick) Neg mg/dL (NEG) Urine Blood Trace (NEG) Urine Nitrite Neg (NEG) Urine Bilirubin Neg (NEG) Urine Urobilinogen Dipstick 0.2 mg/dL (0.2 mg/dL) Urine Leukocyte Esterase Neg (NEG) Urine RBC 1-2 /HPF (0-2) Urine WBC 1-4 /HPF (0-4) Urine Squamous Epithelial Cells Few /LPF Urine Bacteria 0 /HPF (0-FEW) Bedside Urine HCG, Qualitative hcg negative (Negative) Brief Hospital Course Ms. Lara is a 42 old female who presented with DM, CP. Admit to Dr. Reese with cardiology consult. Discharge Information Condition at Discharge: Improved, Stable Dischare Medications Current Medications Aspirin (Children'S Aspirin) 324 mg 1X ONCE PO Last administered on 10/11/18at 02:45; Admin Dose 324 MG; Start 10/11/18 at 02:30; Stop 10/11/18 at 02:31; Status DC Lactated Ringer's 1,000 ml @ 1,000 mls/hr Q1H IV Last administered on 10/11/18at 02:46; Admin Dose 1,000 MLS/HR; Start 10/11/18 at 02:30; Stop 10/11/18 at 03:29; Status DC Enoxaparin Sodium (Lovenox 100mg Syringe) 100 mg 1X ONCE SQ Last administered on 10/11/18at 02:45; Admin Dose 100 MG; Start 10/11/18 at 03:00; Stop 10/11/18 at 03:01; Status DC Active Scripts Active Hydrocodone-Ibuprofen 7.5-200 (Hydrocodone/Ibuprofen) 1 Each Tablet 1 Tab PO PRN Q6HRS PRN Lisinopril 10 Mg Tablet 1 Tab PO DAILY Flagyl (Metronidazole) 500 Mg Tablet 500 Mg PO TID Keflex (Cephalexin) 500 Mg Capsule 500 Mg PO TID 10 Days Prevacid (Lansoprazole) 30 Mg Capsule.dr 1 Cap PO DAILY Lisinopril 5 Mg Tablet 1 Tab PO DAILY Metformin Hcl 500 Mg Tablet 1 Tab PO BID Reported Gabapentin (Gabapentin) 300 Mg Capsule 300 Mg PO TID Diazepam 5 Mg Tablet 5 Mg PO TID PRN Methadone Hcl 10 Mg Tablet 10 Mg PO Q8HRS Promethazine Hcl 25 Mg Tablet 12 Mg PO PRN Q8HRS Phentermine Hcl 37.5 Mg Tablet 37.5 Mg PO Q12HR Savella (Milnacipran Hcl) 50 Mg Tablet 50 Mg PO BID Dragon Disclaimer This chart was dictated in whole or in part using Voice Recognition software in a busy, high-work load, and often noisy Emergency Department environment. It may contain unintended and wholly unrecognized errors or omissions. ALYSSA POOLE MD Oct 11, 2018 02:04
[~2018-10-11 02:12] MED LIST changes: +CEPH-264 PO; +HYDR-1179 PO; +LISI10TA2 PO; +METR500T PO
--- NOTE | 2018-10-11 02:22 | EKG ---
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
[2018-10-11] MEDS ORDERED: ASPIRIN 81 MG TAB.CHEW PO ONE (02:30)
[2018-10-11] MEDS ORDERED: IV RINGERS SOLUTION,LACTATED 1,000 ML IV SCH (02:30)
[2018-10-11 02:38] LABS: BASO # 0.1 x10^3/uL (0.0-0.2); BASO % 1 % (0-3); EOS # 0.2 x10^3/uL (0.0-0.7); EOS % 1 % (0-3); HEMATOCRIT 41.2 % (36.0-47.0); HEMOGLOBIN 13.4 g/dL (12.0-15.5); LYMPH # 4.1 x10^3/uL (1.0-4.8); LYMPH % 33 % (24-48); MEAN CORPUSCULAR HEMOGLOBIN 30 pg (25-35); MEAN CORPUSCULAR HGB CONC 33 g/dL (31-37); MEAN CORPUSCULAR VOLUME 92 fL (79-100); MONO # 0.6 x10^3/uL (0.0-1.1); MONO % 5 % (0-9); NEUT # 7.3 x10^3uL (1.8-7.7); NEUT % 60 % (31-73); PLATELET COUNT 191 x10^3/uL (140-400); RED BLOOD COUNT 4.48 x10^6/uL (3.50-5.40); RED CELL DISTRIBUTION WIDTH 14.1 % (11.5-14.5); WHITE BLOOD COUNT 12.2 x10^3/uL (4.0-11.0)
[2018-10-11 02:58] LABS: ALBUMIN 3.6 g/dL (3.4-5.0); CALCIUM 9.2 mg/dL (8.5-10.1); CREATININE 1.2 mg/dL (0.6-1.0); DIRECT BILIRUBIN 0.1 mg/dL (0.0-0.2); GFR 49.3; MAGNESIUM 1.4 mg/dL (1.8-2.4); POTASSIUM 3.6 mmol/L (3.5-5.1); TOTAL BILIRUBIN 0.3 mg/dL (0.2-1.0); TOTAL PROTEIN 7.3 g/dL (6.4-8.2)
[2018-10-11] MEDS ORDERED: ENOXAPARIN ** NOTE DOSE ** SYRINGE SQ ONE (03:00)
[2018-10-11 03:47] LABS: BACTERIA,URINE 0 /HPF (0-FEW); BILIRUBIN,URINE NEG (NEG); CLARITY,URINE CLEAR; COLOR,URINE YELLOW; GLUCOSE,URINE >=1000 mg/dL (NEG); NITRITE,URINE NEG (NEG); SQUAMOUS EPITHELIAL CELL,UR FEW /LPF; UROBILINOGEN,URINE 0.2 mg/dL (0.2 mg/dL)
[2018-10-11] MEDS ORDERED: ONDANSETRON PF 4 MG/2 ML VIAL. IV PRN (04:00)
[2018-10-11] MEDS ORDERED: INSULIN REGULAR VIAL 150 UNIT in 0.9 % SODIUM CHLORIDE 150ML 150 ML IV ONE ×2 (04:00→04:30)
[2018-10-11] MEDS ORDERED: MORPHINE SULFATE 4 MG/ML DISP.SYRIN. IV PRN (04:00)
[2018-10-11] MEDS ORDERED: ACETAMINOPHEN 325 MG TABLET PO PRN (04:00)
[2018-10-11] MEDS ORDERED: 0.9 % SODIUM CHLORIDE 150ML 150 ML ONE (04:08)
[2018-10-11] MEDS ORDERED: NICOTINE 21MG PATCH. TD ONE (04:30)
[2018-10-11] MEDS ORDERED: ANTI-COAG MONITOR BY PHARMACY. MC PRN (04:30)
[2018-10-11] MEDS ORDERED: AZITHROMYCIN 250 MG TABLET. PO ONE (04:30)
[2018-10-11] MEDS ORDERED: INSULIN REGULAR 100 UNIT/ML 3ML VIAL. IV ONE (04:30)
[2018-10-11] MEDS ORDERED: IV NORMAL SALINE 1,000ML 1,000 ML IV ONE (04:30)
[2018-10-11 05:33] VITALS: BP 113/76
[2018-10-11 06:29] LABS: BARBITURATES NEG (NEG); BENZODIAZEPINES POS (NEG); CANNABINOIDS NEG (NEG); COCAINE NEG (NEG); METHADONE POS (NEG); OPIATES NEG (NEG); PHENCYCLIDINE NEG (NEG)
[2018-10-11 06:30] LABS: AMPHETAMINE/METHAMPHETAMINE NEG (NEG)
[2018-10-11] MEDS ORDERED: ATOR10TA60 PO (06:40)
[2018-10-11] MEDS ORDERED: MODA100T2 PO (06:40)
--- NOTE | 2018-10-11 07:15 | NUR ---
The patient, HYUN PULIDO, 42 y/o, F admitted by SERAFIN PETERSEN MD, was given written information regarding hospital policies, unit procedures and contact persons. Valuables were checked and noted. PT presented with chest pain she thought was related to her high blood sugar. Checked at home around 500. PT with history of MS. PT states not a good support system in place. PT with recurrent cervical cancer, treatment plan pending.
[2018-10-11] MEDS ORDERED: IV NORMAL SALINE 1,000ML 1,000 ML IV SCH (07:45)
[2018-10-11] MEDS ORDERED: DEXTROSE 50% 25 GM / 50ML DISP.SYRIN. IV PRN (07:45)
[2018-10-11] MEDS ORDERED: IPRATRPIUM/ALBUTEROL 0.5/2.5MG 3 ML NEBU. NEB SCH (08:00)
--- NOTE | 2018-10-11 08:13 | RAD ---
Chest radiograph 10/11/2018 2:06 AM INDICATION: Chest pain, shortness of breath COMPARISON: September 27, 2018 TECHNIQUE: Frontal and lateral views of the chest are provided. FINDINGS: The cardiomediastinal silhouette is within normal limits. There are no pleural effusions. There is no pulmonary vascular congestion. There is no pneumothorax. The lungs are clear. No significant osseous abnormality is identified. IMPRESSION: No acute cardiopulmonary process. Electronically signed by: Trina Palacios MD (10/11/2018 8:10 AM) [facility]
[2018-10-11] MEDS: INSULIN LISPRO 300 UNITS/3 ML INSULN.PEN. SQ SCH ×2 (08:17→12:17)
[2018-10-11] MEDS: NITROGLYCERIN OINT 1 GM PACKET. TP SCH ×2 (09:00→14:00)
[2018-10-11] MEDS ORDERED: ENOXAPARIN ** NOTE DOSE ** SYRINGE SQ SCH (09:00)
--- NOTE | 2018-10-11 09:18 | PDOC2 ---
CONSULT Date of Admission DATE: 10/11/18 TIME: 09:17 Reason for Consult: Chest pain Referring Physician: Dr. Reese Chief Complaint Chest pain Source: Chart review, Patient Problem List Problems Medical Problems: (1) Chest pain Status: Acute History of Present Illness 42-year-old female with history of fibromyalgia and multiple sclerosis presented complaining of retrosternal chest pain that she described as something heavy on her chest associated with mild dyspnea and worse with exertion. She is very concerned about her symptoms since she has family history of premature coronary artery disease. She denied any orthopnea/PND, palpitations or syncope. Past Medical History Multiple sclerosis Fibromyalgia Hypertension Hyperlipidemia Peptic ulcer disease with GI bleed Diabetes mellitus type 2 Chronic low back pain Past Surgical History sections Family History Strongly positive for premature coronary artery disease, also positive for stroke and cancer Social History Patient trying to quit smoking and denied any alcohol or drug abuse Current Medications Current Medications Aspirin (Children'S Aspirin) 324 mg 1X ONCE PO Last administered on 10/11/18at 02:45; Start 10/11/18 at 02:30; Stop 10/11/18 at 02:31; Status DC Lactated Ringer's 1,000 ml @ 1,000 mls/hr Q1H IV Last administered on 10/11/18at 02:46; Start 10/11/18 at 02:30; Stop 10/11/18 at 03:29; Status DC Enoxaparin Sodium (Lovenox 100mg Syringe) 100 mg 1X ONCE SQ Last administered on 10/11/18at 02:45; Start 10/11/18 at 03:00; Stop 10/11/18 at 03:01; Status DC Insulin Human Regular (HumuLIN R VIAL) 10 unit 1X ONCE IV Last administered on 10/11/18at 04:21; Start 10/11/18 at 04:30; Stop 10/11/18 at 04:31; Status DC Sodium Chloride 1,000 ml @ 1,000 mls/hr 1X ONCE IV Last administered on 10/11/18at 04:22; Start 10/11/18 at 04:30; Stop 10/11/18 at 05:29; Status DC Insulin Human Regular 150 unit/ Sodium Chloride 151.5 ml @ 0 mls/hr 1X ONCE IV Last administered on 10/11/18at 04:22; Start 10/11/18 at 04:30; Stop 10/11/18 at 04:31; Status DC Ondansetron HCl (Zofran) 4 mg PRN Q4HRS PRN IV NAUSEA/VOMITING; Start 10/11/18 at 04:00; Stop 10/12/18 at 03:59 Morphine Sulfate (Morphine 4mg Syringe) 4 mg PRN Q2HR PRN IV PAIN; Start 10/11/18 at 04:00; Stop 10/12/18 at 03:59 Acetaminophen (Tylenol) 650 mg PRN Q4HRS PRN PO FEVER; Start 10/11/18 at 04:00; Stop 10/12/18 at 03:59 Albuterol/ Ipratropium (Duoneb) 3 ml RTQID NEB ; Start 10/11/18 at 08:00; Stop 10/12/18 at 07:59 Enoxaparin Sodium (Lovenox 120mg Syringe) 110 mg Q12HR SQ ; Start 10/11/18 at 09:00 Insulin Human Regular 150 unit/ Sodium Chloride 151.5 ml @ 0 mls/hr 1X ONCE IV ; Start 10/11/18 at 04:00; Stop 10/11/18 at 04:01; Status UNV Nitroglycerin (Nitro-Bid Oint) 0.5 inch TID TP ; Start 10/11/18 at 09:00 Ceftriaxone Sodium 1 gm/ Sodium Chloride 50 ml @ 100 mls/hr Q24H IV ; Start 10/11/18 at 05:00 Azithromycin (Zithromax) 500 mg 1X ONCE PO Last administered on 10/11/18at 04:22; Start 10/11/18 at 04:30; Stop 10/11/18 at 04:31; Status DC Azithromycin (Zithromax) 250 mg QHS PO ; Start 10/11/18 at 21:00 Nicotine (Nicoderm Cq 21mg) 1 patch 1X ONCE TD Last administered on 10/11/18at 04:23; Start 10/11/18 at 04:30; Stop 10/11/18 at 04:31; Status DC Sodium Chloride 150 ml @ As Directed STK-MED ONCE .ROUTE ; Start 10/11/18 at 04:08; Stop 10/11/18 at 04:09; Status DC Info (Anti-Coagulation Monitoring By Pharmacy) 1 each PRN DAILY PRN MC SEE COMMENTS; Start 10/11/18 at 04:30 Insulin Human Lispro (HumaLOG) 0-9 UNITS TIDWMEALS SQ Last administered on 10/11/18at 08:17; Start 10/11/18 at 08:00 Dextrose (Dextrose 50%-Water Syringe) 12.5 gm PRN Q15MIN PRN IV SEE COMMENTS; Start 10/11/18 at 07:45 Sodium Chloride 1,000 ml @ 100 mls/hr Q10H IV Last administered on 10/11/18at 07:45; Start 10/11/18 at 07:45 Active Scripts Active Lisinopril 10 Mg Tablet 1 Tab PO DAILY Prevacid (Lansoprazole) 30 Mg Capsule.dr 1 Cap PO DAILY Reported Atorvastatin Calcium 10 Mg Tablet 10 Mg PO HS Modafinil 100 Mg Tablet 100 Mg PO DAILY Gabapentin (Gabapentin) 300 Mg Capsule 300 Mg PO TID Diazepam 5 Mg Tablet 5 Mg PO TID PRN Methadone Hcl 10 Mg Tablet 10 Mg PO Q8HRS Promethazine Hcl 25 Mg Tablet 12 Mg PO PRN Q8HRS Savella (Milnacipran Hcl) 50 Mg Tablet 50 Mg PO BID Allergies: Coded Allergies: No Known Drug Allergies (Unverified , 08/19/14) PSYCHOLOGICAL ROS: No: Hallucinations Eyes: No: Loss of vision HEENT: No: Epistaxis Respiratory: YES: Shortness of breath; No: Hemoptysis Cardiovascular: yes: Chest Pain Gastrointestinal: No: Vomiting Genitourinary: No: [place] Neurological: No: Seizures Skin: No: Rash General: Alert, Oriented X3 HEENT: Atraumatic, PERRLA Lungs: Clear to auscultation Heart: Regular rate Abdomen: Soft, No tenderness Extremities: No edema Psych/Mental Status: Mood NL VITALS Vital Signs Date Time Temp Pulse Resp B/P (MAP) Pulse Ox O2 Delivery O2 Flow Rate FiO2 10/11/18 08:00 Room Air 10/11/18 05:33 98.1 90 20 113/76 (88) 98 Labs Laboratory Tests Test 10/11/18 02:21 10/11/18 02:35 10/11/18 03:01 10/11/18 04:49 White Blood Count 12.2 x10^3/uL (4.0-11.0) Red Blood Count 4.48 x10^6/uL (3.50-5.40) Hemoglobin 13.4 g/dL (12.0-15.5) Hematocrit 41.2 % (36.0-47.0) Mean Corpuscular Volume 92 fL (79-100) Mean Corpuscular Hemoglobin 30 pg (25-35) Mean Corpuscular Hemoglobin Concent 33 g/dL (31-37) Red Cell Distribution Width 14.1 % (11.5-14.5) Platelet Count 191 x10^3/uL (140-400) Neutrophils (%) (Auto) 60 % (31-73) Lymphocytes (%) (Auto) 33 % (24-48) Monocytes (%) (Auto) 5 % (0-9) Eosinophils (%) (Auto) 1 % (0-3) Basophils (%) (Auto) 1 % (0-3) Neutrophils # (Auto) 7.3 x10^3uL (1.8-7.7) Lymphocytes # (Auto) 4.1 x10^3/uL (1.0-4.8) Monocytes # (Auto) 0.6 x10^3/uL (0.0-1.1) Eosinophils # (Auto) 0.2 x10^3/uL (0.0-0.7) Basophils # (Auto) 0.1 x10^3/uL (0.0-0.2) Prothrombin Time 10.2 SEC (9.4-11.4) Prothromb Time International Ratio 1.0 (0.9-1.1) Activated Partial Thromboplast Time 23 SEC (23-33) D-Dimer (Leta) 0.34 mg/L (0.00-0.50) Sodium Level 135 mmol/L (136-145) Potassium Level 3.6 mmol/L (3.5-5.1) Chloride Level 99 mmol/L (98-107) Carbon Dioxide Level 27 mmol/L (21-32) Anion Gap 9 (6-14) Blood Urea Nitrogen 14 mg/dL (7-20) Creatinine 1.2 mg/dL (0.6-1.0) Estimated GFR (Cockcroft-Gault) 49.3 Glucose Level 410 mg/dL (70-99) Calcium Level 9.2 mg/dL (8.5-10.1) Magnesium Level 1.4 mg/dL (1.8-2.4) Total Bilirubin 0.3 mg/dL (0.2-1.0) Direct Bilirubin 0.1 mg/dL (0.0-0.2) Aspartate Amino Transf (AST/SGOT) 22 U/L (15-37) Alanine Aminotransferase (ALT/SGPT) 34 U/L (14-59) Alkaline Phosphatase 76 U/L (46-116) Creatine Kinase 54 U/L (26-192) Troponin I Quantitative < 0.017 ng/mL (0-0.055) EU-Ftk-E-Type Natriuretic Peptide 17 pg/mL (0-124) Total Protein 7.3 g/dL (6.4-8.2) Albumin 3.6 g/dL (3.4-5.0) Lipase 132 U/L (73-393) Urine Collection Type Unknown Urine Color Yellow Urine Clarity Clear Urine pH 5.5 Urine Specific [place] 1.015 Urine Protein Neg (NEG-TRACE) Urine Glucose (UA) >=1000 mg/dL (NEG) Urine Ketones (Stick) Neg mg/dL (NEG) Urine Blood Trace (NEG) Urine Nitrite Neg (NEG) Urine Bilirubin Neg (NEG) Urine Urobilinogen Dipstick 0.2 mg/dL (0.2 mg/dL) Urine Leukocyte Esterase Neg (NEG) Urine RBC 1-2 /HPF (0-2) Urine WBC 1-4 /HPF (0-4) Urine Squamous Epithelial Cells Few /LPF Urine Bacteria 0 /HPF (0-FEW) Urine Opiates Screen Neg (NEG) Urine Methadone Screen Pos (NEG) Urine Barbiturates Neg (NEG) Urine Phencyclidine Screen Neg (NEG) Urine Amphetamine/Methamphetamine Neg (NEG) Urine Benzodiazepines Screen Pos (NEG) Urine Cocaine Screen Neg (NEG) Urine Cannabinoids Screen Neg (NEG) Urine Ethyl Alcohol Neg (NEG) Bedside Urine HCG, Qualitative hcg negative (Negative) Glucose (Fingerstick) 305 mg/dL (70-99) Test 10/11/18 06:16 10/11/18 07:49 Glucose (Fingerstick) 307 mg/dL (70-99) 300 mg/dL (70-99) Assessment/Plan 1. Chest pain with mixed features. Myocardial infarction has been ruled out. She was admitted in 2017 for chest pain when stress test did not show any sig nificant ischemia. Due to recurrent nature of her chest pain, somewhat atypical features this time, multiple cardiovascular risk factors and strong family history of premature coronary artery disease, we will proceed with cardiac catheterization for definitive evaluation. Risks and benefits were explained. 2. Hypertension: Controlled 3. Hyperlipidemia: Statins 4. Diabetes mellitus type 2: Treat per IM 5. Multiple sclerosis and fibromyalgia Thank you for your consultation LOULOU SHERIDAN MD Oct 11, 2018 09:18
[2018-10-11] MEDS ORDERED: diazePAM 5 MG TABLET PO PRN (10:30)
[2018-10-11] MEDS ORDERED: PROMETHAZINE 6.25 MG/5 ML SYRUP. PO PRN (11:00)
[2018-10-11] MEDS ORDERED: PROMETHAZINE 25 MG TABLET. PO PRN (11:00)
[2018-10-11 11:22] LABS: THYROID STIM HORMONE (TSH) 3.264 uIU/mL (0.358-3.740)
--- NOTE | 2018-10-11 13:12 | HP ---
ADMIT DATE: 10/11/2018 HISTORY OF PRESENT ILLNESS: The patient is a 42-year-old female patient, who came to the Emergency Room with a complaint of chest pain that is retrosternal as well as shortness of breath. She localizes her pain to the center of the chest with some exacerbation on deep breath and cough. She was evaluated in the Emergency Room, has had an EKG, which was in sinus tachycardia with a heart rate of 110 with some nonspecific anteroseptal changes, but no ST-segment elevation myocardial infarction, has had a chest x-ray, which basically showed no acute cardiopulmonary process. She has mild leukocytosis. Her first set of cardiac enzyme showed troponin to be less than 0.017. Her blood sugar was suboptimally controlled. She is only on metformin and therefore, she was admitted to do 2 more sets of cardiac enzyme, consult the answerer and better control of her blood sugar. PAST MEDICAL HISTORY: Significant for hypertension, hyperlipidemia, peptic ulcer disease, colon polyps, GI bleeding, type 2 diabetes mellitus, multiple sclerosis, fibromyalgia, chronic low back pain from degenerative disk disease. PAST SURGICAL HISTORY: Significant for x 5. FAMILY HISTORY: Significant for premature coronary artery disease in her father with onset in his 30s. Multiple family members with diabetes. She has also other family members with history of stroke and cancer. SOCIAL HISTORY: She is , mother of 8, with several children still at home. She continued to smoke, does not drink alcohol or use any recreational drugs. ALLERGIES: She has no known drug allergies. MEDICATIONS: She is currently on following medications: She is on promethazine 12 mg p.o. every 8 hours, atorvastatin calcium 10 mg at bedtime, lisinopril 10 mg once a day, methadone 10 mg every 8 hours, gabapentin 300 mg 3 times a day, modafinil 100 mg once a day, diazepam 5 mg 3 times a day, Savella 50 mg p.o. b.i.d., and lansoprazole 30 mg daily. REVIEW OF SYSTEMS: As per history of present illness. PHYSICAL EXAMINATION: GENERAL: On arrival to the Emergency Room, the patient looked well and was clearly in no apparent respiratory distress. No pallor, jaundice, cyanosis or thyromegaly. No jugular venous distension. No limb edema. VITAL SIGNS: Her heart rate was 107, blood pressure was 130/79, temperature was 99, respiratory rate was 18 and her oxygen saturation was 98% on room air. HEAD, EYES, EARS, NOSE AND THROAT: Normocephalic, atraumatic. NECK: Supple. HEART: Showed normal first and second heart sounds with no gallop, rub or murmur. CHEST: Clear to auscultation. No crepitation or rhonchi. ABDOMEN: Distended, soft, nontender. NEUROLOGIC: She is somewhat lethargic, but arousable. All her cranial nerves intact. She moves extremities without difficulty. She normally ambulates without assistance or assistive devices. LABORATORY DATA: On arrival to the Emergency Room showed a white cell count 12,200, hemoglobin 13.4, hematocrit 41, MCV 92, and platelet count is 191,000 with normal manual differential. Her prothrombin time was 10.2, INR of 1, aPTT was 23 and D-dimer was 0.34. Her chemistry showed a serum sodium 135, potassium 3.6, chloride 99, bicarbonate 27, anion gap of 9, BUN 14, creatinine 1.2, estimated GFR was 49 mL per minute. Her glucose was 110. Calcium was 9.2, magnesium was 1.4. Total bilirubin, AST, ALT, alkaline phosphatase were normal. Her CK was 54. Troponin was less than 0.017. Total protein was 7.3, albumin was 3.6. Her urinalysis showed the urine was yellow, clear with a pH of 5.5, specific gravity of 1.015. The urine was negative for protein. There was large amount of glucose, negative for ketones, trace of blood, negative for nitrite and leukocyte esterase, 1-2 rbc's, 1-4 wbc's, very few bacteria. Her urine test was negative. Her toxic screen was positive for methadone and benzodiazepine. She is consistent with her intake of methadone and diazepam. Her chest x-ray showed the cardiomediastinal silhouette within normal limits. There is no pleural effusion. There is no pulmonary vascular congestion. There is no pneumothorax. The lungs are clear. No significant osseous abnormalities identified. ASSESSMENT: In summary, this is a 42-year-old female patient who was admitted with chest pain to rule out myocardial infarction. She has also poorly controlled type 2 diabetes. She has mild leukocytosis, hypertension, continued tobacco use, slightly elevated creatinine and acute bronchitis. PLAN: To continue with IV fluid, continue with IV antibiotic. I will cut down her Lovenox to only therapeutic dose as her D-dimer is normal and she has no evidence of DVT. We will do 2 more sets of cardiac enzymes. She was already seen by the answerer. The patient has very similar presentation about 2 years ago. At that time, she also ruled out for myocardial infarction, although she cannot recall whether she has any further ischemic workup as an outpatient. We will also start her on insulin sliding scale and probably she will need to be on Amaryl at least to start with. SERAFIN PETERSEN MD DR: KELLY/maryanne JOB#: [id number] / [id number]
[2018-10-11] MEDS ORDERED: GABAPENTIN 300 MG CAPSULE. PO SCH (14:00)
[2018-10-11] MEDS ORDERED: METHADONE 5 MG TABLET. PO SCH (14:00)
--- NOTE | 2018-10-11 15:04 | NUR ---
pt to be transferred to [facility], report called to reji nolasco. pt to room 211, family and pt informed, verbalized understanding. ems here for transfer. pt off the unit.
--- NOTE | 2018-10-11 20:29 | DS ---
DATE OF DISCHARGE: 10/11/2018 HISTORY OF PRESENT ILLNESS: The patient is a 42-year-old female patient with history of fibromyalgia and multiple sclerosis who presented with complaining of retrosternal chest pain that she described something heavy on her chest associated with mild dyspnea, worse with exertion. She is very concerned about her symptoms given she has strong family history of premature coronary artery disease, however, she denied any orthopnea, paroxysmal nocturnal dyspnea, palpitation or syncope and her first set of cardiac enzyme was less than 0.017. Her lipid profile showed her triglycerides were 300, total cholesterol 130, LDL was 48, VLDL was 60. Her HDL cholesterol was 22 and the ratio was 5. Her D-dimer was only 0.34 and she was evaluated by the communication instructor, who recommended transferring the patient to [facility] with view of catheterization given very strong family history. PHYSICAL EXAMINATION: GENERAL: Prior to discharge, she was resting slightly propped up in bed, in no apparent respiratory distress. She was pale. No jaundice, cyanosis or thyromegaly. No jugular venous distention. No limb edema. VITAL SIGNS: Her heart rate was 90, blood pressure 113/76, temperature was 98, respiratory rate 20 and oxygen saturation was 98% on room air. HEAD, EYES, EARS, NOSE AND THROAT: Showed normocephalic, atraumatic. NECK: Supple. HEART: Showed normal first and second heart sounds with no gallop, rub or murmur. CHEST: Clear to auscultation. No crepitation or rhonchi. ABDOMEN: Distended, soft, nontender. The patient will be transferred to [facility] to consult the cardiology team. FINAL DISCHARGE DIAGNOSES: Chest pain with mixed features. Myocardial infarction has been ruled out. She was admitted in 2017 for chest pain. Her stress test did not show any significant ischemia. Given her very strong family history of premature coronary artery disease and recurrent nature of chest pain, the patient will be transferred to [facility] for cardiac catheterization for definitive evaluation. Other medical problems include hypertension, hyperlipidemia, type 2 diabetes, multiple sclerosis and fibromyalgia. SERAFIN PETERSEN MD DR: KELLY/maryanne JOB#: [id number] / [id number]
[2018-10-11] MEDS ORDERED: AZITHROMYCIN 250 MG TABLET. PO SCH (21:00)
[2018-10-11] MEDS ORDERED: ATORVASTATIN CALCIUM 10 MG TABLET. PO SCH (21:00)
[2018-10-11] MEDS ORDERED: MILNACIPRAN 50 MG TABLET PO SCH (21:00)
[2018-10-12] MEDS ORDERED: ENOXAPARIN 40 MG/0.4 ML SYRINGE. SQ SCH (09:00)
[2018-10-12] MEDS ORDERED: LANSOPRAZOLE 30 MG TAB.RAP.DR FT SCH (09:00)
[2018-10-12] MEDS ORDERED: MODAFINIL 100 MG TABLET PO SCH (09:00)
[2018-10-12] MEDS ORDERED: LISINOPRIL 10 MG TABLET PO SCH (09:00)
== END 2018-10-11 15:05 | disposition short-term general hospital (02) ==
LOC: ER 02:12 → INTOOBSV 03:55 → 1 SOUTH 03:55 → ICU 06:45
PROVIDERS: ADMIT Internal Medicine; ATTEND Internal Medicine
DX: R07.2 Precordial pain (principal); D72.829 Elevated white blood cell count, unspecified; I10 Essential (primary) hypertension; J20.9 Acute bronchitis, unspecified; E78.5 Hyperlipidemia, unspecified; M79.7 Fibromyalgia; M54.5 Low back pain; G89.29 Other chronic pain; G35 Multiple sclerosis; F32.9 Major depressive disorder, single episode, unspecified; F41.9 Anxiety disorder, unspecified; J44.9 Chronic obstructive pulmonary disease, unspecified; E78.00 Pure hypercholesterolemia, unspecified; G43.909 Migraine, unspecified, not intractable, without status migrainosus; F17.210 Nicotine dependence, cigarettes, uncomplicated; E11.65 Type 2 diabetes mellitus with hyperglycemia
CPT/HCPCS: 36415; 71046; 80048; 80061; 80076; 80307; 81001; 81025; 82550; 82947; 83690; 83735; 83880; 84443; 84484; 85025; 85379; 85610; 85730; 93005; 94640; 94760; 96361; 96365; 96372; 96375; 99284; G0378; J0456; J0696; J1650; J1815; J7120; J7620; 96376; G0379; 99285-25; J7030

== ENCOUNTER → 2018-12-15 | Outpatient (CLI) | payer OTHER ==
[~2018-12-15] MED LIST changes: +ATOR10TA60 PO; +MODA100T2 PO
--- NOTE | 2018-12-16 09:06 | RAD ---
DATE: 12/16/2018 EXAM: DIGITAL SCREEN BILAT W/CAD HISTORY: Asymptomatic screening mammogram COMPARISON: Baseline examination This study was interpreted with the benefit of Computerized Aided Detection (CAD). Breast Density: SCATTERED The breast parenchyma shows scattered fibroglandular densities. Breast parenchyma level B. FINDINGS: Bilateral CC and MLO views of the breasts were performed. Right breast: There are no suspicious microcalcifications, masses or areas of architectural distortion. Left breast: There are no suspicious microcalcifications, masses or areas of architectural distortion. IMPRESSION: Negative bilateral mammogram BI-RADS CATEGORY: 1 NEGATIVE RECOMMENDED FOLLOW-UP: 12M 12 MONTH FOLLOW-UP PQRS compliance statement: Patient information was entered into a reminder system with a target due date 12/16/2019 for the next mammogram. Mammography is a sensitive method for finding small breast cancers, but it does not detect them all and is not a substitute for careful clinical examination. A negative mammogram does not negate a clinically suspicious finding and should not result in delay in biopsying a clinically suspicious abnormality. "Our facility is accredited by the [employer] Mammography Program."
== END | disposition home or self-care (01) ==
LOC: MAMMO 15:17
PROVIDERS: ATTEND Physician Assistant
DX: Z12.31 Encounter for screening mammogram for malignant neoplasm of breast (principal)
CPT/HCPCS: 77067

== ENCOUNTER → 2019-10-01 | Outpatient (CLI) | payer OTHER ==
[~2019-10-01] MED LIST changes: +IOHEXOL 240 MG/ML 50ML VIAL. ONE; +IOHEXOL 300 MG/ML 75 ML VIAL. IV ONE
--- NOTE | 2019-10-02 09:51 | RAD ---
EXAM: Abdomen and pelvis CT without intravenous contrast. HISTORY: Cervical cancer. TECHNIQUE: Computed tomographic images of the abdomen and pelvis were obtained following without intravenous contrast. Contrast was not administered due to a reported contrast allergy. *One or more of the following individualized dose reduction techniques were utilized for this examination: 1. Automated exposure control. 2. Adjustment of the mA and/or kV according to patient size. 3. Use of iterative reconstruction technique. COMPARISON: None. FINDINGS: Evaluation of the lower thorax is unremarkable. There is severe hepatomegaly and hepatic steatosis. There is focal fatty sparing along the gallbladder fossa. No convincing hepatic lesion is seen on this noncontrast exam. The gallbladder is unremarkable. There is a prominent common bile duct. No obstructing lesion is seen at the ampulla. The pancreas is unremarkable. The spleen is enlarged, measuring 14.4 cm craniocaudally. The adrenal glands are unremarkable. There is bilateral renal nephrocalcinosis. There is no hydronephrosis or convincing suspicious solid or cystic renal lesion. The appendix is unremarkable. No abnormally thickened or dilated loop of bowel is seen. The urinary bladder is unremarkable. There is a 1.5 cm dominant left ovarian follicle. No suspicious adnexal lesion is seen. There is decreased attenuation within the endocervical canal. No uterine mass is seen. The aorta is normal in caliber. There are prominent aortocaval lymph nodes slightly inferior to the renal veins, the largest of which measures 10 mm. There is no suspicious osseous lesion. There is slight endplate remodeling and Schmorl's node formation at the thoracic and lumbar levels. There is facet arthropathy predominantly at the lower lumbar levels. There is benign-appearing sclerosis within the right iliac bone adjacent to the sacroiliac joint. IMPRESSION: 1. Limited evaluation due to the absence of intravenous contrast. There is hypodensity within the endocervical canal which is difficult to assess in the absence of contrast. This can be better assessed with a pelvic sonogram. 2. Severe hepatomegaly and hepatic steatosis. 3. Splenomegaly. 4. Nonspecific prominent aortocaval lymph nodes measuring up to 10 mm slightly inferior to the renal veins. These may be physiologic or reactive in etiology. There is no convincing lymphadenopathy to suggest metastatic disease. 5. Bilateral nephrocalcinosis. Electronically signed by: Margot Salazar MD (10/02/2019 9:48 AM) [id number]
== END ==
LOC: CT 15:21
PROVIDERS: ATTEND Physician Assistant
DX: C53.9 Malignant neoplasm of cervix uteri, unspecified (principal); R16.2 Hepatomegaly with splenomegaly, not elsewhere classified; K76.0 Fatty (change of) liver, not elsewhere classified; E83.59 Other disorders of calcium metabolism; N29 Other disorders of kidney and ureter in diseases classified elsewhere
CPT/HCPCS: 74176

== ENCOUNTER → 2019-10-22 | Outpatient (CLI) | payer OTHER ==
[~2019-10-22] MED LIST changes: -IOHEXOL 240 MG/ML 50ML VIAL. ONE
[2019-10-22 04:56] LABS: CREATININE 1.2 mg/dL (0.6-1.0)
--- NOTE | 2019-10-22 15:13 | RAD ---
INDICATION: Reason: CERVICAL CANCER / Spl. Instructions: / History: COMPARISON: CT October 01, 2019 TECHNIQUE: Grayscale and color ultrasound images uterus and adnexa. Transabdominal and transvaginal images obtained. Transvaginal images were needed to better visualize structures that were limited on transabdominal imaging. FINDINGS: Uterus: 105 x 60 x 50 mm. Endometrial Stripe: 20 mm. The bilateral ovaries are obscured by bowel gas. Nabothian cyst. 7 mm region of fluid extending into the myometrium adjacent to the endometrial stripe. IMPRESSION: * Nabothian cysts are identified. * Thickened endometrial stripe which can be seen with hyperplasia or endometrial mass. * Incidental visualization of thickening of the adjacent bladder wall measuring up to 7 mm although a portion of this could be secondary to lack of distention. Electronically signed by: Yaya Arredondo MD (10/22/2019 3:11 PM) [id number]
--- NOTE | 2019-10-22 17:51 | RAD ---
INDICATION: Reason: HX OF CERVICAL CANCER / Spl. Instructions: PT PREMEDICATED. IV CONTRAST ONLY OKAY'D PER DR FLORES / History: COMPARISON: October 01, 2019 TECHNIQUE: Axial CT images obtained through the abdomen and pelvis with contrast. One or more of the following individualized dose reduction techniques were utilized for this examination: 1. Automated exposure control; 2. Adjustment of the mA and/or kV according to patient size; 3. Use of iterative reconstruction technique. FINDINGS: Abdominal aorta is not aneurysmal. The liver is enlarged with low density which can be seen with fatty infiltration. Prominence of the common bile duct with distal tapering. No peripancreatic fluid collection. The spleen appears enlarged. No hydronephrosis. Hypodensity within the bilateral kidneys is again seen. No hydronephrosis. Urinary bladder has minimal urine within it at time of exam. Low-density lesion of the right kidney which is subcentimeter in size. There is fullness of the soft tissues identified at the cervical and vaginal region as well as inferior aspect of the uterus. Moderate stool throughout the colon. No periappendiceal inflammatory changes. Fullness of the rectal region. There is a couple of prominent loops of small bowel without a high-grade transition point. Small fat-containing umbilical hernia. Degenerative changes of the hips. Degenerative changes of the spine. IMPRESSION: * Fullness of soft tissues within the lower uterine segment, cervical and vaginal region. If the patient has had recent treatment this could be posttreatment related. Cannot exclude a lesion within the area on CT. * There is also some prominence of the rectal wall. Could be related to posttreatment changes given proximity to the cervix but would correlate with symptoms to ensure that there is not a pathologic causes such as proctitis. * Previously identified borderline sized retroperitoneal lymph nodes are similar to prior. * Liver is low density which can be seen with fatty infiltration * Medullary nephrocalcinosis and nonobstructive renal stones. Electronically signed by: Yaya Arredondo MD (10/22/2019 5:48 PM) [id number]
== END | disposition home or self-care (01) ==
LOC: US 03:59
DX: C53.9 Malignant neoplasm of cervix uteri, unspecified (principal); N88.8 Other specified noninflammatory disorders of cervix uteri; R16.0 Hepatomegaly, not elsewhere classified; R16.1 Splenomegaly, not elsewhere classified; K42.9 Umbilical hernia without obstruction or gangrene; M16.0 Bilateral primary osteoarthritis of hip; M47.9 Spondylosis, unspecified; E83.59 Other disorders of calcium metabolism; N29 Other disorders of kidney and ureter in diseases classified elsewhere
CPT/HCPCS: 36415; 74177; 76830; 76856; 82565; 84520; Q9967

== ENCOUNTER → 2020-05-05 | Outpatient (CLI) | payer OTHER ==
[~2020-05-05] MED LIST changes: -IOHEXOL 300 MG/ML 75 ML VIAL. IV ONE; -LISI-334 PO; -LISI-338 PO; +LISI-517 PO; +LISI10TA16 PO; -LISI10TA2 PO; +LISI20TA18 PO
--- NOTE | 2020-05-06 07:59 | RAD ---
EXAM: CT Maxillofacial without IV contrast INDICATION: Reason: FACIAL PAIN / Spl. Instructions: / History: TECHNIQUE: Multi-detector row CT images were obtained through the maxillofacial region without the u se of IV contrast. Post-processing reconstructed images were obtained for interpretation. All CT scan s performed at this facility utilize dose optimization techniques as appropriate to the exam, includi ng the following: Automated exposure control and adjustment of the mA and/or KV according to patient size (this includes techniques or standardized protocols for targeted exams where dose is indication/ reason for exam). COMPARISON: None FINDINGS: OSSEOUS: No evidence of fracture or bone destruction. There is evidence of dental disease with severa l dental caries and fractured teeth. VISUALIZED INTRACRANIAL STRUCTURES: Unremarkable. ORBITS: Orbital contents are unremarkable.. SINUSES: Small mucous retention cyst in the right maxillary sinus. Otherwise Visualized paranasal sin uses and mastoid air cells are clear. SOFT TISSUES: Unremarkable. IMPRESSION: Evidence of dental disease. Otherwise unremarkable CT maxillofacial without contrast. Electronically signed by: Ney Baez MD (05/06/2020 7:56 AM) [facility] [place]
== END ==
LOC: CT 15:43
PROVIDERS: ATTEND Physician Assistant
DX: J34.1 Cyst and mucocele of nose and nasal sinus (principal); K02.9 Dental caries, unspecified; K03.81 Cracked tooth
CPT/HCPCS: 70486

== ENCOUNTER 2020-07-26 19:16 | Emergency (ER) | payer OTHER ==
[~2020-07-26] VITALS: Ht 167.6 cm; Wt 104.5 kg
[2020-07-26] MEDS ORDERED: oxyCODONE/APAP 5/325 1 TAB TABLET ONE (20:27)
[2020-07-26] MEDS ORDERED: oxyCODONE/APAP 5/325 1 TAB TABLET PO ONE (20:30)
[2020-07-26] MEDS ORDERED: OXYC-325 PO (20:47)
--- NOTE | 2020-07-26 20:47 | PHYS DOC ---
Past History Past Medical History: Anxiety, Bronchitis, Cancer, COPD, Depression, Diabetes, Fibromyalgia, High Cholesterol, Hypertension, IBS, Migraines, UTI, Other (TYRON RAMOS APRN) Past Surgical History: Cancer Surgery, , Other (TYRON RAMOS APRN) Smoking: Cigarettes Alcohol Use: None Drug Use: None (TYRON RAMOS APRN) General Adult EDM: Chief Complaint: DENTAL PROBLEM HPI: HPI: Patient is a 44-year-old female presents with right-sided dental pain. Patient states that she needs to have her tooth pulled, but has not been able to get a ride to the dentist. She states that she took ibuprofen prior to arrival with no relief. Denies fever. (TYRON RAMOS APRN) Review of Systems: Review of Systems: Constitutional: Denies fever or chills Eyes: Denies change in visual acuity HENT: Denies nasal congestion, right-sided dental pain Respiratory: Denies cough or shortness of breath Cardiovascular: Denies chest pain or edema GI: Denies abdominal pain, nausea, vomiting, bloody stools or diarrhea : Denies dysuria Musculoskeletal: Denies back pain or joint pain Integument: Denies rash Neurologic: Denies headache, focal weakness or sensory changes Endocrine: Denies polyuria or polydipsia Lymphatic: Denies swollen glands Psychiatric: Denies depression or anxiety (TYRON RAMOS APRN) Current Medications: Current Meds: Current Medications Medications (Trade) Dose Ordered Sig/Diaz Start Time Stop Time Status Last Admin Dose Admin Oxycodone/ Acetaminophen (Percocet 5/325) 1 tab STK-MED ONCE 07/26/20 20:27 07/26/20 20:27 DC (TYRON RAMOS APRN) Allergies: Allergies: Allergies Coded Allergies Type Severity Reaction Last Updated Verified iodine Allergy Mild Shortness of Air 10/22/19 Yes (TYRON RAMOS APRN) Physical Exam: PE: Constitutional: Well developed, well nourished, no acute distress, non-toxic appearance. [] HENT: Right-sided, upper dental pain. Bilateral external ears normal, oropharynx moist, no oral exudates, nose normal. [] Eyes: PERRLA, EOMI, conjunctiva normal, no discharge. [] Neck: Normal range of motion, no tenderness, supple, no stridor. [] Cardiovascular:Heart rate regular rhythm, no murmur [] Lungs & Thorax: Bilateral breath sounds clear to auscultation [] Abdomen: Bowel sounds normal, soft, no tenderness, no masses, no pulsatile natalie s. [] Skin: Warm, dry, no erythema, no swelling (TYRON RAMOS APRN) Current Patient Data: Vital Signs: Vital Signs Date Time Temp Pulse Resp B/P (MAP) Pulse Ox O2 Delivery O2 Flow Rate FiO2 07/26/20 20:29 20 98 Room Air 07/26/20 19:25 98.1 128 165/106 (125) (TYRON RAMOS APRN) EKG: EKG: [] (TYRON RAMOS APRN) Radiology/Procedures: Radiology/Procedures: [] (TYRON RAMOS APRN) Heart Score: C/O Chest Pain: No Risk Factors: Risk Factors: DM, Current or recent (<one month) smoker, HTN, HLP, family history of CAD, obesity. Risk Scores: Score 0 - 3: 2.5% MACE over next 6 weeks - Discharge Home Score 4 - 6: 20.3% MACE over next 6 weeks - Admit for Clinical Observation Score 7 - 10: 72.7% MACE over next 6 weeks - Early Invasive Strategies (TYRON RAMOS APRN) Course & Med Decision Making: Course & Med Decision Making Pertinent Labs and Imaging studies reviewed. (See chart for details) [] 44-year-old female with right-sided dental pain. No swelling noted. Afeb rile. Percocet given for discomfort. Patient instructed to take ibuprofen at home for pain. Patient given a prescription for Percocet until she can follow- up with her PCP. Patient is appreciative and okay with discharge plan plan (TYRON RAMOS APRN) Course & Med Decision Making Did not see or evaluate patient. Agree with MRI CT TECH's work-up and disposition per note. (DEMETRIA HERNANDEZ MD) Dragon Disclaimer: Dragon Disclaimer: This electronic medical record was generated, in whole or in part, using a voice recognition dictation system. (TYRON RAMOS APRN) Departure Departure: Impression: Primary Impression: Pain, dental Disposition: HOME / SELF CARE / HOMELESS Condition: STABLE Referrals: LEWIS FRIAS (PCP) Patient Instructions: Dental Pain, [id number] Additional Instructions: EMERGENCY DEPARTMENT GENERAL DISCHARGE INSTRUCTIONS Thank you for coming to [facility] (ED) today and trusting us with you care. We trust that you had a positivie experience in our Emergency Department. If you wish to speak to the department management, you may call the director at [phone]. YOUR FOLLOW UP INSTRUCTIONS ARE FOLLOWS: 1. Do you have a private Doctor? If you do not have a private doctor, please ask for a resource list of physicians or clinics that may be able to assist you with follow up care. 2. The Emergency Physician has interpreted your x-rays. The X-Ray specialist will also review them. If there is a change in the findings, you will be notified in 48 hours when at all possible. 3. A lab test or culture has been done, your results will be reviewed and you will be notified if you need a change in treatment. ADDITIONAL INSTRUCTIONS AND INFORMATION: 1. Your care today has been supervised by a physician who is specially trained in emergency care. Many problems require more than one evaluation for a complete diagnosis and treatment. We recommend that you schedule your follow up appointment as recommended to ensure complete treatment of you illness or injury. If you are unable to obtain follow up care and continue to have a problem, or if your condition worsens, we recommend that you return to the ED. 2. We are not able to safely determine your condition over the phone nor are we able to give sound medical advice over the phone. For these safety reasons, if you call for medical advice we will ask you to come to the ED for further evaluation. 3. If you have any questions regarding these discharge instructions please call the ED at [phone]. SAFETY INFORMATION: In the interest of safety, wellness, and injury prevention; we encourage you to wear your sealbelt, if you smoke; quite smoking, and we encourage family to use a protective helmet for bicycling and other sporting events that present an increased risk for head injury. IF YOUR SYMPTOMS WORSEN OR NEW SYMPTOMS DEVELOP, OR YOU HAVE CONCERNS ABOUT YOUR CONDITION; OR IF YOUR CONDITION WORSENS WHILE YOU ARE WAITING FOR YOUR FOLLOW UP APPOINTMENT; EITHER CONTACT YOUR PRIMARY CARE DOCTOR, THE PHYSICIAN WHOSE NAME AND NUMBER YOU WERE GIVEN, OR RETURN TO THE ED IMMEDIATELY. Scripts Oxycodone HCl/Acetaminophen (Percocet 5-325 mg Tablet) 1 Each Tablet 1 TAB PO PRN BID PRN for PAIN MDD 2 Tablet(s) for 5 Days, #10 TAB 0 Refills Prov: TYRON RAMOS APRN 07/26/20 TYRON RAMOS APRN July 26, 2020 20:47 DEMETRIA HERNANDEZ MD July 27, 2020 03:40
[2020-07-26 21:06] VITALS: BP 128/68
== END 2020-07-26 21:10 | disposition home or self-care (01) ==
LOC: ER 19:16
DX: K08.89 Other specified disorders of teeth and supporting structures (principal); F41.9 Anxiety disorder, unspecified; J44.9 Chronic obstructive pulmonary disease, unspecified; F32.9 Major depressive disorder, single episode, unspecified; E11.9 Type 2 diabetes mellitus without complications; M79.7 Fibromyalgia; E78.00 Pure hypercholesterolemia, unspecified; I10 Essential (primary) hypertension; K58.9 Irritable bowel syndrome, unspecified; G43.909 Migraine, unspecified, not intractable, without status migrainosus; F17.210 Nicotine dependence, cigarettes, uncomplicated; Z87.440 Personal history of urinary (tract) infections; Z88.8 Allergy status to other drugs, medicaments and biological substances
CPT/HCPCS: 99283

== ENCOUNTER 2020-08-26 01:48 | Emergency (ER) | payer OTHER ==
[~2020-08-26] VITALS: Ht 167.6 cm; Wt 104.5 kg
[~2020-08-26 01:48] MED LIST changes: +OXYC-325 PO
--- NOTE | 2020-08-26 01:53 | PHYS DOC ---
Past History Past Medical History: Anxiety, Bronchitis, Cancer, COPD, Depression, Diabetes, Fibromyalgia, High Cholesterol, Hypertension, IBS, Migraines, UTI, Other Past Surgical History: Cancer Surgery, , Other Smoking: Cigarettes Alcohol Use: None Drug Use: None General Adult HPI: HPI: ". These teeth are really hurting tonight.. I ve been here before with these... ' Patient is a 44 year old female who presents with dental pain 32 and 31. Patient has surrounding gingivitis and inflammation of the mandible. Does have adenopathy at angle of mandible. There is some facial swelling. There is no trismus. Patient is swelling has limited her mouth opening size. Patient denies any history immunosuppression. No recent travel. Patient has had multiple visits for dental decay. Patient denies any history of immunosuppression. No recent trauma. Patient has previous medical history of chest pain, tobacco abuse, hypertension, hyperlipidemia, diabetes, multiple sc lerosis, and fibromyalgia. Review of Systems: Review of Systems: Constitutional: Denies fever or chills Eyes: Denies change in visual acuity HENT: Complains of dental pain Respiratory: Denies cough or shortness of breath Cardiovascular: Denies chest pain or edema GI: Denies abdominal pain, nausea, vomiting, bloody stools or diarrhea : Denies dysuria Musculoskeletal: Denies back pain or joint pain Integument: Denies rash Neurologic: Denies headache, focal weakness or sensory changes Endocrine: Denies polyuria or polydipsia Lymphatic: Denies swollen glands Psychiatric: Denies depression or anxiety Family History: Family History: Noncontributory to presentation Current Medications: Current Meds: See nursing for home meds Allergies: Allergies: Allergies Coded Allergies Type Severity Reaction Last Updated Verified iodine Allergy Mild Shortness of Air 10/22/19 Yes Physical Exam: PE: Constitutional: Moderate acute distress, non-toxic appearance. [] HENT: Normocephalic, atraumatic, bilateral external ears normal, oropharynx moist, no oral exudates, nose normal. Multiple areas of dental decay. Focal areas of pain are 31 and 32. Gingivitis. Adenopathy angle of mandible on right. Right facial cellulitis. Eyes: PERRLA, EOMI, conjunctiva normal, no discharge. [] Neck: Normal range of motion, no tenderness, supple, no stridor. [] Cardiovascular:Heart rate regular rhythm, no murmur [] Lungs & Thorax: Bilateral breath sounds equal apex with scattered wheezing throughout on auscultation [] Abdomen: Bowel sounds normal, soft, no tenderness, no masses, no pulsatile masses. Obese. Scars Skin: Warm, dry, no erythema, no rash. [] Back: No tenderness, no CVA tenderness. [] Extremities: No tenderness, no cyanosis, no clubbing, ROM intact, no edema. [] Neurologic: Alert and oriented X 3, normal motor function, normal sensory function, no focal deficits noted. [] Psychologic: Affect anxious, judgement normal, mood normal. [] EKG: EKG: [] Radiology/Procedures: Radiology/Procedures: [] Heart Score: C/O Chest Pain: N/A Risk Factors: Risk Factors: DM, Current or recent (<one month) smoker, HTN, HLP, family history of CAD, obesity. Risk Scores: Score 0 - 3: 2.5% MACE over next 6 weeks - Discharge Home Score 4 - 6: 20.3% MACE over next 6 weeks - Admit for Clinical Observation Score 7 - 10: 72.7% MACE over next 6 weeks - Early Invasive Strategies Course & Med Decision Making: Course & Med Decision Making Pertinent Labs and Imaging studies reviewed. (See chart for details) Patient take Tylenol and ibuprofen for pain. Patient distracted must follow-up with dentist that does this extractions or oral surgeon. Patient take Keflex 500 mg 3 times a day. Must see a dentist. Impression: 1. Dental pain 2. Dental infection 3. Tobacco abuse [] Dragon Disclaimer: Dragkavin Disclaimer: This electronic medical record was generated, in whole or in part, using a voice recognition dictation system. Departure Departure: Referrals: LEWIS FRIAS (PCP) Scripts Cephalexin (KEFLEX) 750 Mg Capsule 500 MG PO TID for dental infection for 14 Days, #28 CAP Prov: ALYSSA POOLE MD 08/26/20 ALYSSA POOLE MD Aug 26, 2020 01:53
[2020-08-26 02:00] VITALS: BP 135/86
[2020-08-26] MEDS ORDERED: CEPH750C9 PO (02:09)
[2020-08-26] MEDS ORDERED: cefTRIAXone SODIUM 1 GM VIAL ONE (02:14)
[2020-08-26] MEDS ORDERED: oxyCODONE/APAP 5/325 1 TAB TABLET ONE (02:15)
[2020-08-26] MEDS ORDERED: cefTRIAXone IM 1 GM VIAL IM ONE (02:30)
[2020-08-26] MEDS ORDERED: KETOROLAC 60 MG/2 ML VIAL. IM ONE (02:30)
[2020-08-26] MEDS ORDERED: oxyCODONE/APAP 5/325 1 TAB TABLET PO ONE (02:30)
== END 2020-08-26 02:50 | disposition home or self-care (01) ==
LOC: ER 01:48
DX: K04.7 Periapical abscess without sinus (principal); J44.9 Chronic obstructive pulmonary disease, unspecified; E11.9 Type 2 diabetes mellitus without complications; E78.5 Hyperlipidemia, unspecified; I10 Essential (primary) hypertension; F17.210 Nicotine dependence, cigarettes, uncomplicated
CPT/HCPCS: 96372; 99284; J0696; J1885

== ENCOUNTER 2020-09-18 23:30 | Emergency (ER) | payer OTHER ==
[~2020-09-18] VITALS: Ht 167.6 cm; Wt 106.7 kg
[~2020-09-18 23:30] MED LIST changes: +CEPH750C9 PO; -PHEN37.5 PO; +PHEN37.59 PO
[2020-09-19 00:10] LABS: CALCIUM 9.4 mg/dL (8.5-10.1); GFR 60.2; POTASSIUM 4.1 mmol/L (3.5-5.1)
[2020-09-19 00:15] LABS: ALBUMIN 4.1 g/dL (3.4-5.0); ALBUMIN/GLOBULIN RATIO 1.1 (1.0-1.7); TOTAL BILIRUBIN 0.5 mg/dL (0.2-1.0); TOTAL PROTEIN 7.9 g/dL (6.4-8.2)
--- NOTE | 2020-09-19 00:17 | PHYS DOC ---
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 She has had intermittent chest pain for several months. She presents today because she has had a central chest heaviness that radiates through to her back. It started around 1800. She was not doing anything strenuous. Nothing seems to make it better or worse. She rates it moderate with periods of severe. She has had a stress test in the past. She was supposed to have a stent about a year ago but they never put one in. She is unsure what complication arose to where they decided not to put her down. She denies shortness of breath or diaphoresis. No fever or chills. Review of Systems: Review of Systems: Constitutional: Denies fever or chills Eyes: Denies change in visual acuity HENT: Denies nasal congestion or sore throat Respiratory: Denies cough or shortness of breath Cardiovascular: Chest pain GI: Denies abdominal pain, nausea, vomiting, bloody stools or diarrhea : Denies dysuria Musculoskeletal: Denies back pain or joint pain Integument: Denies rash Neurologic: Denies headache, focal weakness or sensory changes Endocrine: Denies polyuria or polydipsia Lymphatic: Denies swollen glands Psychiatric: Denies depression or anxiety Allergies: Allergies: Allergies Coded Allergies Type Severity Reaction Last Updated Verified iodine Allergy Severe Shortness of Air 08/26/20 Yes Physical Exam: PE: Constitutional: Well developed, well nourished, morbidly obese, no acute distress, non-toxic appearance. [] HENT: Normocephalic, atraumatic, bilateral external ears normal, oropharynx moist, no oral exudates, nose normal. [] Eyes: PERRLA, EOMI, conjunctiva normal, no discharge. [] Neck: Normal range of motion, no tenderness, supple, no stridor. [] Cardiovascular: Heart rate regular rhythm, no murmur [] Lungs & Thorax: Bilateral breath sounds clear to auscultation [] Abdomen: Bowel sounds normal, soft, no tenderness, no masses, no pulsatile masses. [] Skin: Warm, dry, no erythema, no rash. [] Back: No tenderness, no CVA tenderness. [] Extremities: No tenderness, no cyanosis, no clubbing, ROM intact, no edema. [] Neurologic: Alert and oriented X 3, normal motor function, normal sensory function, no focal deficits noted. [] Psychologic: Affect normal, judgement normal, mood anxious. [] EKG: EKG: [] Radiology/Procedures: Radiology/Procedures: [] Heart Score: C/O Chest Pain: Yes HEART Score for Chest Pain: HEART Score for Chest Pain Response (Comments) Value History Slighlty/Non-Suspicious 0 ECG Nonspecific Repolarizatio 1 Age < 45 0 Risk Factors 1 or 2 Risk Factors 1 Troponin < Normal Limit 0 Total 2 Risk Factors: Risk Factors: DM, Current or recent (<one month) smoker, HTN, HLP, family history of CAD, obesity. Risk Scores: Score 0 - 3: 2.5% MACE over next 6 weeks - Discharge Home Score 4 - 6: 20.3% MACE over next 6 weeks - Admit for Clinical Observation Score 7 - 10: 72.7% MACE over next 6 weeks - Early Invasive Strategies Course & Med Decision Making: Course & Med Decision Making Pertinent Labs and Imaging studies reviewed. (See chart for details) The patient's labs are unremarkable except for an elevated blood sugar of 271. Her anion gap is normal. Have ordered a liter of normal saline. Her EKG is unremarkable. Her chest x-ray is unremarkable. Her troponin is normal. Her heart score is a 2. I have advised that she follow-up with her primary care physician. She is stable for discharge at this time. [] Dragon Disclaimer: Ayden Disclaimer: This electronic medical record was generated, in whole or in part, using a voice recognition dictation system. Departure Departure: Impression: Primary Impression: Chest pain Qualified Codes: R07.9 - Chest pain, unspecified Disposition: HOME / SELF CARE / HOMELESS Condition: STABLE Referrals: LEWIS FRIAS (PCP) Patient Instructions: Chest Pain (Nonspecific), [id number] NATANAEL SHIELDS 13, 2021 00:17
[2020-09-19 00:22] LABS: BASO # 0.1 x10^3/uL (0.0-0.2); BASO % 1 % (0-3); EOS # 0.2 x10^3/uL (0.0-0.7); EOS % 2 % (0-3); HEMATOCRIT 43.3 % (36.0-47.0); HEMOGLOBIN 14.5 g/dL (12.0-15.5); LYMPH # 3.8 x10^3/uL (1.0-4.8); LYMPH % 30 % (24-48); MEAN CORPUSCULAR HEMOGLOBIN 31 pg (25-35); MEAN CORPUSCULAR HGB CONC 34 g/dL (31-37); MEAN CORPUSCULAR VOLUME 93 fL (79-100); MONO # 0.6 x10^3/uL (0.0-1.1); MONO % 5 % (0-9); NEUT % 63 % (31-73); PLATELET COUNT 190 x10^3/uL (140-400); RED BLOOD COUNT 4.64 x10^6/uL (3.50-5.40); RED CELL DISTRIBUTION WIDTH 13.6 % (11.5-14.5); WHITE BLOOD COUNT 12.7 x10^3/uL (4.0-11.0)
[2020-09-19] MEDS ORDERED: IV NORMAL SALINE 1,000ML 1,000 ML IV ONE (01:00)
[2020-09-19 01:06] VITALS: BP 123/66
--- NOTE | 2020-09-19 06:32 | RAD ---
INDICATION: Reason: CP / Spl. Instructions: / History: COMPARISON: October 11, 2018 FINDINGS: Single view of chest obtained. Cardiac silhouette is unremarkable. Relative haziness at lung bases without definite consolidation elsewhere in the lungs. No gross osseous destructive lesion. IMPRESSION: * Relative haziness at the lung bases which is commonly secondary to overlap of soft tissue structur es or atelectasis. No definite consolidation elsewhere in the lungs. Electronically signed by: Yaya Arredondo MD (09/19/2020 3:02 AM) [id number]
--- NOTE | 2020-09-20 06:35 | EKG ---
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
== END 2020-09-19 01:55 | disposition home or self-care (01) ==
LOC: ER 23:30
DX: R07.89 Other chest pain (principal); F41.9 Anxiety disorder, unspecified; J44.9 Chronic obstructive pulmonary disease, unspecified; F32.9 Major depressive disorder, single episode, unspecified; E11.9 Type 2 diabetes mellitus without complications; M79.7 Fibromyalgia; K21.9 Gastro-esophageal reflux disease without esophagitis; E78.00 Pure hypercholesterolemia, unspecified; I10 Essential (primary) hypertension; G43.909 Migraine, unspecified, not intractable, without status migrainosus; K58.9 Irritable bowel syndrome, unspecified; G35 Multiple sclerosis; F17.210 Nicotine dependence, cigarettes, uncomplicated; Z87.440 Personal history of urinary (tract) infections; Z88.8 Allergy status to other drugs, medicaments and biological substances
CPT/HCPCS: 36415; 71045; 80053; 84484; 85025; 93005; 96360; 99285-25

== ENCOUNTER 2020-10-06 13:58 | Emergency (ER) | payer OTHER ==
[~2020-10-06] VITALS: Ht 167.6 cm; Wt 106.7 kg
--- NOTE | 2020-10-06 14:15 | PHYS DOC ---
Past History Past Medical History: Anxiety, Bronchitis, Cancer, COPD, Depression, Diabetes, Fibromyalgia, GERD, High Cholesterol, Hypertension, IBS, Migraines, UTI, Other Additional Past Medical Histor: MS; metastatic cancer of cervix with mets to uterus, bladder, abdomen Past Surgical History: Cancer Surgery, , Other Additional Past Surgical Histo: D & C-x3; repair of hole in eardrum-Lt; wisdom teeth Smoking: Cigarettes Alcohol Use: None Drug Use: None General Adult EDM: Chief Complaint: CHEST PAIN Problems: (1) Chest pain HPI: HPI: 44 year old female with past medical history of metastatic cervical cancer, hy pertension, obesity, high cholesterol, fibromyalgia, diabetes and recent Covid diagnosis 2 days ago presents to the emergency department complaining of chest pain in the middle of her chest that worsens with breathing and coughing. She reports her chest pain is currently present and is moderate in severity. Denies any radiation of pain. Admits to shortness of breath, cough, generalized body aches and overall not feeling well. She also complains of fever at home and she has been taking ibuprofen and Tylenol intermittently with last dose yesterday. The patient denies nausea, vomiting, abdominal pain, urinary symptoms, recent trauma, or any other complaints. Review of Systems: Review of Systems: Constitutional: Admits to fatigue fever and chills. Eyes: Denies change in vision, pain. HENT: Admits to congestion, sore throat. Respiratory: Admits to cough and shortness of breath. Cardiovascular: Admits to chest pain, denies palpitations. GI: Admits to nausea, denies abdominal pain. : Denies change in urination, dysuria. Musculoskeletal: Denies extremity pain, swelling or trauma. Skin: Denies rash, skin change. Neurologic: Denies headache, focal weakness. Psychiatric: Denies depression or anxiety. All other systems reviewed as negative except for what was mentioned in the HPI. Allergies: Allergies: Allergies Coded Allergies Type Severity Reaction Last Updated Verified iodine Allergy Severe Shortness of Air 08/26/20 Yes Physical Exam: PE: Constitutional: Moderate distress, anxious, nontoxic appearance. HENT: Atraumatic, bilateral external ears normal, nose normal. Eyes: PERRLA, EOMI, conjunctiva normal, no discharge. Neck: Normal range of motion, supple, no stridor. Cardiovascular: Tachycardic 2+ radial pulses Lungs & Thorax: No respiratory distress, symmetrical expansion. Bilateral breath sounds clear to auscultation Abdomen: Soft, no tenderness Skin: Warm, dry. Extremities: No tenderness, no cyanosis, ROM intact, no edema. Neurologic: Alert and oriented X 3, normal motor function, normal sensory function, no focal deficits noted. Non ataxic gait. GCS 15. Psychologic: Affect normal, judgment normal, anxious Current Patient Data: Labs: Laboratory Tests Test 10/06/20 15:40 White Blood Count 6.2 x10^3/uL (4.0-11.0) Red Blood Count 4.65 x10^6/uL (3.50-5.40) Hemoglobin 14.4 g/dL (12.0-15.5) Hematocrit 42.8 % (36.0-47.0) Mean Corpuscular Volume 92 fL (79-100) Mean Corpuscular Hemoglobin 31 pg (25-35) Mean Corpuscular Hemoglobin Concent 34 g/dL (31-37) Red Cell Distribution Width 13.5 % (11.5-14.5) Platelet Count 108 x10^3/uL (140-400) L Neutrophils (%) (Auto) 56 % (31-73) Lymphocytes (%) (Auto) 35 % (24-48) Monocytes (%) (Auto) 8 % (0-9) Eosinophils (%) (Auto) 2 % (0-3) Basophils (%) (Auto) 0 % (0-3) Neutrophils # (Auto) 3.4 x10^3uL (1.8-7.7) Lymphocytes # (Auto) 2.1 x10^3/uL (1.0-4.8) Monocytes # (Auto) 0.5 x10^3/uL (0.0-1.1) Eosinophils # (Auto) 0.1 x10^3/uL (0.0-0.7) Basophils # (Auto) 0.0 x10^3/uL (0.0-0.2) Prothrombin Time 10.0 SEC (9.4-11.4) Prothrombin Time INR 1.0 (0.9-1.1) D-Dimer (Leta) 0.26 mg/L (0.00-0.50) Sodium Level 141 mmol/L (136-145) Potassium Level 4.1 mmol/L (3.5-5.1) Chloride Level 105 mmol/L (98-107) Carbon Dioxide Level 27 mmol/L (21-32) Anion Gap 9 (6-14) Blood Urea Nitrogen 14 mg/dL (7-20) Creatinine 0.8 mg/dL (0.6-1.0) Estimated GFR (Cockcroft-Gault) 77.9 Glucose Level 222 mg/dL (70-99) H Calcium Level 8.7 mg/dL (8.5-10.1) Troponin I Quantitative < 0.017 ng/mL (0-0.055) VX-Rqz-P-Type Natriuretic Peptide 8 pg/mL (0-124) Vital Signs: Vital Signs Date Time Temp Pulse Resp B/P (MAP) Pulse Ox O2 Delivery O2 Flow Rate FiO2 10/06/20 15:53 76 18 141/85 (103) 98 Room Air 10/06/20 15:50 20 98 Room Air 10/06/20 14:03 99.5 111 16 160/108 100 Room Air EKG: EKG: Sinus tachycardia rate of 102, no ST-T wave changes, no ectopic beats, normal axis, normal [place], QRS, and QTc intervals. Impression: Normal EKG. interpreted by meAda D.O. Radiology/Procedures: Radiology/Procedures: EXAM: Bilateral lower extremity venous Doppler sonogram. HISTORY: Pain and swelling. TECHNIQUE: Warren scale and color Doppler sonographic evaluation of the bilateral lower extremity veins with spectral waveform analysis was performed. FINDINGS: There is normal color flow, normal compressibility and there are normal spectral waveforms in the common femoral, superficial femoral, popliteal, posterior tibial and greater saphenous veins. IMPRESSION: No Doppler evidence of lower extremity deep venous thrombosis. Electronically signed by: Margot Salazar MD (10/06/2020 3:59 PM) XR CHEST 1V CLINICAL INDICATIONS: Reason: chest pain, covid COMPARISON: September 19, 2020. Findings: No acute lung infiltrate or pleural effusion or pulmonary edema or lung mass or pneumothorax is seen. The heart size, pulmonary vasculature, mediastinum and both smueet are unremarkable. IMPRESSION: No acute radiographic abnormality is seen. Electronically signed by: Guanako Vargas MD (10/06/2020 3:09 PM) Heart Score: C/O Chest Pain: Yes HEART Score for Chest Pain: HEART Score for Chest Pain Response (Comments) Value History Moderately Suspicious 1 ECG Normal 0 Age < 45 0 Risk Factors >3 Risk Factors or Hx CAD 2 Troponin < Normal Limit 0 Total 3 Course & Med Decision Making: Course & Med Decision Making Patient with heart score as above, she does not have any concerning signs for ACS at the time of discharge, she feels much better after interventions above, she likely has a viral syndrome with Covid. I discussed return precautions with her and she will follow strict return precautions at home and self quarantine. I further discussed the vaccine with her and she will get the vaccine when she is recovered from the virus. She denies any further complaints at the time of discharge and is comfortable with the plan. She does not require any supplemental oxygen at this time and her vital signs are within normal limits Departure Departure: Impression: Primary Impression: COVID-19 Disposition: HOME / SELF CARE / HOMELESS Condition: STABLE Referrals: LEWIS FRIAS (PCP) Patient Instructions: Upper Respiratory Infection, Adult Additional Instructions: You were seen in the emergency department for a upper respiratory tract infection, most likely from COVID-19. You should return to the ED if you develop worsening cough, shortness of breath, chest pain, or any other new or concerning symptoms. You can use an OTC sinus rinse to help with sinus congestion. Your cough may persist for a few weeks but your other symptoms should gradually improve. You should make sure to drink plenty of fluids at home. You may use Tylenol at home for fevers every 4-6 hours no more than 4000 mg/day. Please remember it is very important that you self isolate/quarantine at home, stay away from family and friends, and stay away from work until you ar e cleared by your physician or you test negative and are asymptomatic. ADA MONTES DO Oct 06, 2020 14:15
[2020-10-06] MEDS ORDERED: MORPHINE SULFATE 4 MG/ML DISP.SYRIN. IV/SQ PRN (14:45)
[2020-10-06] MEDS ORDERED: KETOROLAC 15 MG/ML VIAL. IVP ONE (14:45)
[2020-10-06] MEDS ORDERED: ACETAMINOPHEN 500 MG TABLET PO ONE (14:45)
[2020-10-06] MEDS ORDERED: IV NORMAL SALINE 1,000ML 1,000 ML IV SCH (14:45)
--- NOTE | 2020-10-06 15:12 | RAD ---
XR CHEST 1V CLINICAL INDICATIONS: Reason: chest pain, covid COMPARISON: September 19, 2020. Findings: No acute lung infiltrate or pleural effusion or pulmonary edema or lung mass or pneumothora x is seen. The heart size, pulmonary vasculature, mediastinum and both sumeet are unremarkable. IMPRESSION: No acute radiographic abnormality is seen. Electronically signed by: Guanako Vargas MD (10/06/2020 3:09 PM) [id number]
--- NOTE | 2020-10-06 16:01 | RAD ---
EXAM: Bilateral lower extremity venous Doppler sonogram. HISTORY: Pain and swelling. TECHNIQUE: Warren scale and color Doppler sonographic evaluation of the bilateral lower extremity veins with spectral waveform analysis was performed. FINDINGS: There is normal color flow, normal compressibility and there are normal spectral waveforms in the common femoral, superficial femoral, popliteal, posterior tibial and greater saphenous veins. IMPRESSION: No Doppler evidence of lower extremity deep venous thrombosis. Electronically signed by: Margot Salazar MD (10/06/2020 3:59 PM) [id number]
[2020-10-06 16:24] LABS: BASO % 0 % (0-3); EOS # 0.1 x10^3/uL (0.0-0.7); EOS % 2 % (0-3); HEMATOCRIT 42.8 % (36.0-47.0); HEMOGLOBIN 14.4 g/dL (12.0-15.5); LYMPH # 2.1 x10^3/uL (1.0-4.8); LYMPH % 35 % (24-48); MEAN CORPUSCULAR HEMOGLOBIN 31 pg (25-35); MEAN CORPUSCULAR HGB CONC 34 g/dL (31-37); MEAN CORPUSCULAR VOLUME 92 fL (79-100); MONO # 0.5 x10^3/uL (0.0-1.1); MONO % 8 % (0-9); NEUT # 3.4 x10^3uL (1.8-7.7); NEUT % 56 % (31-73); PLATELET COUNT 108 x10^3/uL (140-400); RED BLOOD COUNT 4.65 x10^6/uL (3.50-5.40); RED CELL DISTRIBUTION WIDTH 13.5 % (11.5-14.5); WHITE BLOOD COUNT 6.2 x10^3/uL (4.0-11.0)
--- NOTE | 2020-10-06 16:26 | EKG ---
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
[2020-10-06 16:33] LABS: CALCIUM 8.7 mg/dL (8.5-10.1); CREATININE 0.8 mg/dL (0.6-1.0); GFR 77.9; POTASSIUM 4.1 mmol/L (3.5-5.1)
[2020-10-06 17:28] VITALS: BP 121/85
== END 2020-10-06 17:28 | disposition home or self-care (01) ==
LOC: ER 13:58
DX: U07.1 COVID-19 (principal); J44.9 Chronic obstructive pulmonary disease, unspecified; K21.9 Gastro-esophageal reflux disease without esophagitis; F17.210 Nicotine dependence, cigarettes, uncomplicated
CPT/HCPCS: 36415; 71045; 80048; 83880; 84484; 85025; 85379; 85610; 93005; 93970; 96361; 96374; 96375; 99285; J1885; J2270; J7030

== ENCOUNTER 2021-01-18 14:09 | Emergency (ER) | payer OTHER ==
[~2021-01-18] VITALS: Ht 167.6 cm; Wt 104.5 kg
[~2021-01-18 14:09] MED LIST changes: -LISI-517 PO; +LISI5TAB15 PO; +METH-570 PO; -METH10TA2 PO
[2021-01-18] MEDS ORDERED: IV NORMAL SALINE 1,000ML 1,000 ML IV ONE (14:30)
--- NOTE | 2021-01-18 15:13 | RAD ---
Study: XR ELBOW COMPLETE_RIGHT 3+ VIEWS Indication: Fall. Comparison: None. Findings: No acute fracture. Alignment is within normal limits. No elbow joint effusion. Degenerative changes a re mild. Impression: No acute fracture or malalignment. Electronically signed by: VÍCTOR KIM MD (01/18/2021 3:10 PM) [facility]
--- NOTE | 2021-01-18 15:14 | RAD ---
Study: XR SHOULDER_RIGHT 2+ VIEWS Indication: Fall. Comparison: None. Findings: Alignment is maintained. No acute fracture. No advanced degenerative changes though there does appear to be a subacromial spur. The partially assessed right-sided ribs are grossly intact. Impression: No acute fracture or malalignment. Electronically signed by: VÍCTOR KIM MD (01/18/2021 3:12 PM) [facility]
--- NOTE | 2021-01-18 15:19 | RAD ---
CT HEAD AND C-SPINE WO Clinical indications: Reason: fall, pain / Spl. Instructions: / History: NONCONTRAST HEAD CT COMPARISON: August 19, 2014. Technique: Noncontrast axial cross sectional scanning of the head was performed. PQRS compliance Statement One or more of the following individualized dose reduction techniques were utilized for this study: 1. Automated exposure control 2. Adjustment of the mA and/or kV according to patient size 3. Use of iterative reconstruction technique Findings: No acute intracranial hemorrhage or midline shift or mass-effect or hydrocephalus or extra- axial fluid collection is seen. No focal hypodense area or sulci effacement is seen to indicate an ac maru infarct or edema radiographically. No skull fracture or pneumocephalus is seen. No opacification of the mastoid sinuses or the middle ear cavities is seen. There is a 2.9 cm mucous retention cyst o f the floor of the right maxillary sinus. IMPRESSION: No acute intracranial abnormality is seen. CERVICAL SPINE CT WITHOUT CONTRAST TECHNIQUE: Noncontrast helical CT scanning of the cervical spine was performed. Multiplanar 2-D recon structions were generated. FINDINGS: No acute fracture or discitis or lytic process is evident. No anterolisthesis is evident. N o perching of facet joints is seen. Spinous processes are intact. There is moderate degenerative endp late spurring at C5-6. IMPRESSION: No acute fracture. Electronically signed by: Guanako Vargas MD (01/18/2021 3:16 PM) [id number]
--- NOTE | 2021-01-18 15:25 | RAD ---
Examination: Right Lower Extremity Venous Doppler Ultrasound History: Right lower extremity pain, swelling Comparison: None Procedure: Warren scale, color flow 2D and spectal waveform analysis images are obtained with and witho ut compression in the area of the common femoral vein, superficial femoral vein - femoral vein juncti on, main femoral vein (superficial femoral vein) and popliteal vein. Veins of the proximal calf are a lso imaged. Findings: There is normal duplex flow, color flow and compressibility of all visualized vein segments. No evide nce of deep venous thrombus is present. Impression: No evidence of DVT in the right lower extremity venous system. Electronically signed by: George Murray MD (01/18/2021 3:23 PM) [id number]
[2021-01-18 15:44] LABS: BASO # 0.1 x10^3/uL (0.0-0.2); BASO % 1 % (0-3); EOS # 0.2 x10^3/uL (0.0-0.7); EOS % 2 % (0-3); HEMATOCRIT 44.2 % (36.0-47.0); HEMOGLOBIN 14.7 g/dL (12.0-15.5); LYMPH # 2.9 x10^3/uL (1.0-4.8); LYMPH % 25 % (24-48); MEAN CORPUSCULAR HEMOGLOBIN 31 pg (25-35); MEAN CORPUSCULAR HGB CONC 33 g/dL (31-37); MEAN CORPUSCULAR VOLUME 93 fL (79-100); MONO # 0.5 x10^3/uL (0.0-1.1); MONO % 5 % (0-9); NEUT # 8.1 x10^3uL (1.8-7.7); NEUT % 69 % (31-73); PLATELET COUNT 161 x10^3/uL (140-400); RED BLOOD COUNT 4.77 x10^6/uL (3.50-5.40); RED CELL DISTRIBUTION WIDTH 14.1 % (11.5-14.5); WHITE BLOOD COUNT 11.7 x10^3/uL (4.0-11.0)
[2021-01-18] MEDS ORDERED: INSULIN REGULAR 100 UNIT/ML 3ML VIAL. IV ONE (15:45)
--- NOTE | 2021-01-18 15:46 | PHYS DOC ---
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 Patient states that she was walking into the bathroom when she felt little dizzy and fell she caught her right arm on the sink and it pulled and twisted around behind her head. She now has pain in the shoulder and elbow. She is not sure if she hit her head but she has some occipital pain and neck soreness. She denies any numbness, tingling, or altered sensation. The patient has MS. She also has very elevated blood sugar. She states that she been having trouble controlling it lately. It was 400 prior to arrival. Review of Systems: Review of Systems: Constitutional: Denies fever or chills Eyes: Denies change in visual acuity HENT: Head and neck pain Respiratory: Denies cough or shortness of breath Cardiovascular: Denies chest pain or edema GI: Denies abdominal pain, nausea, vomiting, bloody stools or diarrhea : Denies dysuria Musculoskeletal: Right shoulder, right elbow pain Integument: Denies rash Neurologic: Dizziness. Denies focal weakness or sensory changes Endocrine: Denies polyuria or polydipsia Lymphatic: Denies swollen glands Psychiatric: Denies depression or anxiety Current Medications: Current Meds: Current Medications Medications (Trade) Dose Ordered Sig/Diza Start Time Stop Time Status Last Admin Dose Admin Sodium Chloride 1,000 ml @ 1,000 mls/hr 1X ONCE 01/18/21 14:30 01/18/21 15:29 DC 01/18/21 15:20 1,000 MLS/HR Allergies: Allergies: Allergies Coded Allergies Type Severity Reaction Last Updated Verified iodine Allergy Severe Shortness of Air 08/26/20 Yes Physical Exam: PE: Constitutional: Well developed, well nourished, obese, no acute distress, non- toxic appearance. [] HENT: Normocephalic, atraumatic, bilateral external ears normal, oropharynx moist, no oral exudates, nose normal. [] Eyes: PERRLA, EOMI, conjunctiva normal, no discharge. [] Neck: Normal range of motion, no tenderness, supple, no stridor. [] Cardiovascular: Heart rate regular rhythm, no murmur [] Lungs & Thorax: Bilateral breath sounds clear to auscultation [] Abdomen: Bowel sounds normal, soft, no tenderness, no masses, no pulsatile masses. [] Skin: Warm, dry, no erythema, no rash. [] Back: No tenderness, no CVA tenderness. [] Extremities: General tenderness of the right shoulder and right elbow region. Exam is limited due to patient pain. [] Neurologic: Alert and oriented X 3, normal motor function, normal sensory function, no focal deficits noted. [] Psychologic: Affect normal, judgement normal, mood anxious. [] Current Patient Data: Labs: Laboratory Tests Test 01/18/21 15:15 Glucose (Fingerstick) 370 mg/dL (70-99) H Vital Signs: Vital Signs Date Time Temp Pulse Resp B/P (MAP) Pulse Ox O2 Delivery O2 Flow Rate FiO2 01/18/21 14:29 98.4 99 18 157/103 (121) 99 Room Air EKG: EKG: [] Radiology/Procedures: Radiology/Procedures: [] Impressions: Examination: Right Lower Extremity Venous Doppler Ultrasound History: Right lower extremity pain, swelling Comparison: None Procedure: Warren scale, color flow 2D and spectal waveform analysis images are obtained with and without compression in the area of the common femoral vein, superficial femoral vein - femoral vein junction, main femoral vein (superficial femoral vein) and popliteal vein. Veins of the proximal calf are also imaged. Findings: There is normal duplex flow, color flow and compressibility of all visualized vein segments. No evidence of deep venous thrombus is present. Impression: No evidence of DVT in the right lower extremity venous system. Electronically signed by: George Murray MD (01/18/2021 3:23 PM) [id number] DICTATED AND SIGNED BY: GEORGE MURRAY MD DATE: 01/18/21 1520 CC: NATANAEL SHIELDS DO; LEWIS FRIAS PA ~MTH0 0 Study: XR SHOULDER_RIGHT 2+ VIEWS Indication: Fall. Comparison: None. Findings: Alignment is maintained. No acute fracture. No advanced degenerative changes though there does appear to be a subacromial spur. The partially assessed right- sided ribs are grossly intact. Impression: No acute fracture or malalignment. Electronically signed by: VÍCTOR KMI MD (01/18/2021 3:12 PM) [facility] DICTATED AND SIGNED BY: VÍCTOR KIM MD DATE: 01/18/21 1510 CC: NATANAEL SHIELDS DO; LEWIS FRIAS ~MTH0 0 Study: XR ELBOW COMPLETE_RIGHT 3+ VIEWS Indication: Fall. Comparison: None. Findings: No acute fracture. Alignment is within normal limits. No elbow joint effusion. Degenerative changes are mild. Impression: No acute fracture or malalignment. Electronically signed by: VÍCTOR KIM MD (01/18/2021 3:10 PM) [facility] DICTATED AND SIGNED BY: VÍCTOR KIM MD DATE: 01/18/21 1508 CC: NATANAEL SHIELDS DO; LEWIS FRIAS ~MTH0 0 CT HEAD AND C-SPINE WO Clinical indications: Reason: fall, pain / Spl. Instructions: / History: NONCONTRAST HEAD CT COMPARISON: August 19, 2014. Technique: Noncontrast axial cross sectional scanning of the head was performed. PQRS compliance Statement One or more of the following individualized dose reduction techniques were utilized for this study: 1. Automated exposure control 2. Adjustment of the mA and/or kV according to patient size 3. Use of iterative reconstruction technique Findings: No acute intracranial hemorrhage or midline shift or mass-effect or hydrocephalus or extra-axial fluid collection is seen. No focal hypodense area or sulci effacement is seen to indicate an acute infarct or edema radiographically. No skull fracture or pneumocephalus is seen. No opacification of the mastoid sinuses or the middle ear cavities is seen. There is a 2.9 cm mucous retention cyst of the floor of the right maxillary sinus. IMPRESSION: No acute intracranial abnormality is seen. CERVICAL SPINE CT WITHOUT CONTRAST TECHNIQUE: Noncontrast helical CT scanning of the cervical spine was performed. Multiplanar 2-D reconstructions were generated. FINDINGS: No acute fracture or discitis or lytic process is evident. No anterolisthesis is evident. No perching of facet joints is seen. Spinous processes are intact. There is moderate degenerative endplate spurring at C5-6. IMPRESSION: No acute fracture. Electronically signed by: Real Vargas MD (01/18/2021 3:16 PM) [id number] DICTATED AND SIGNED BY: REAL VARGAS MD DATE: 01/18/21 1505 CC: NATANAEL SHIELDS DO; LEWIS FRIAS ~MTH0 0 Heart Score: C/O Chest Pain: N/A Risk Factors: Risk Factors: DM, Current or recent (<one month) smoker, HTN, HLP, family history of CAD, obesity. Risk Scores: Score 0 - 3: 2.5% MACE over next 6 weeks - Discharge Home Score 4 - 6: 20.3% MACE over next 6 weeks - Admit for Clinical Observation Score 7 - 10: 72.7% MACE over next 6 weeks - Early Invasive Strategies Course & Med Decision Making: Course & Med Decision Making Pertinent Labs and Imaging studies reviewed. (See chart for details) All the patient's imaging is negative for acute findings. I believe she is just a little banged up from falling. Her blood sugar was 370. We have given her a liter normal saline and 10 units of regular insulin by IV. Her anion gap is normal. The rest of her labs are unremarkable. I suspect her elevated blood sugar had a lot to do with her falling. I have advised that she watch this more carefully and keep it under better control as much as possible. She is stable for discharge at this time. [] Ayden Disclaimer: Ayden Disclaimer: This electronic medical record was generated, in whole or in part, using a voice recognition dictation system. Departure Departure: Impression: Primary Impression: Hyperglycemia due to type 2 diabetes mellitus Additional Impression: Fall from standing Disposition: 01 HOME / SELF CARE / HOMELESS Condition: STABLE Referrals: LEWIS FRIAS (PCP) Patient Instructions: Hyperglycemia, Plts-co-Cagq NATANAEL SHIELDS DO Jan 18, 2021 15:46
[2021-01-18 15:50] LABS: CALCIUM 8.8 mg/dL (8.5-10.1); CREATININE 0.9 mg/dL (0.6-1.0); GFR 67.7; POTASSIUM 4.2 mmol/L (3.5-5.1)
[2021-01-18 15:57] LABS: ALBUMIN 3.6 g/dL (3.4-5.0); ALBUMIN/GLOBULIN RATIO 0.9 (1.0-1.7); TOTAL BILIRUBIN 0.4 mg/dL (0.2-1.0); TOTAL PROTEIN 7.5 g/dL (6.4-8.2)
[2021-01-18 16:57] LABS: BILIRUBIN,URINE NEG (NEG); CLARITY,URINE CLEAR; COLOR,URINE YELLOW; GLUCOSE,URINE >=1000 mg/dL (NEG)
[2021-01-18 16:58] LABS: BACTERIA,URINE 0 /HPF (0-FEW); NITRITE,URINE NEG (NEG); RBC,URINE OCC /HPF (0-2); SQUAMOUS EPITHELIAL CELL,UR FEW /LPF; UROBILINOGEN,URINE 0.2 mg/dL (0.2 mg/dL)
[2021-01-18 17:30] VITALS: BP 150/91
== END 2021-01-18 17:34 | disposition home or self-care (01) ==
LOC: ER 14:09
DX: M25.511 Pain in right shoulder (principal); R51.9 Headache, unspecified; M54.2 Cervicalgia; R42 Dizziness and giddiness; E11.65 Type 2 diabetes mellitus with hyperglycemia; I82.401 Acute embolism and thrombosis of unspecified deep veins of right lower extremity; J44.9 Chronic obstructive pulmonary disease, unspecified; K21.9 Gastro-esophageal reflux disease without esophagitis; E78.5 Hyperlipidemia, unspecified; F17.210 Nicotine dependence, cigarettes, uncomplicated; W18.39XA Other fall on same level, initial encounter; Y93.01 Activity, walking, marching and hiking; Y92.89 Other specified places as the place of occurrence of the external cause; Y99.8 Other external cause status
CPT/HCPCS: 36415; 70450; 72125; 73030; 73080; 80053; 81001; 82947; 85025; 93971; 96361; 96374; 99285; J1815; J7030

== ENCOUNTER → 2021-03-15 | Outpatient (CLI) | payer OTHER ==
--- NOTE | 2021-03-15 13:32 | RAD ---
Exam Date: 03/15/2021 10:23 AM XR LUMBAR SPINE 2-3V Indication: Reason: PAIN / Spl. Instructions: / History: . FINDINGS/ IMPRESSION: Anatomic alignment is maintained without spondylolisthesis. The vertebral body heights are maintaine d without evidence of compression fracture. Disc spaces are maintained. Small osteophytes and mild facet joint arthropathy are seen at multiple levels. The SI joints appear normal. The visualized soft tissues are within normal limits. Electronically signed by: Reggie Wu MD (03/15/2021 1:30 PM) [id number]
== END ==
LOC: RAD 10:14
PROVIDERS: ATTEND Anesthesiology Pain Medicine
DX: Z02.71 Encounter for disability determination (principal); M25.78 Osteophyte, vertebrae; M48.8X6 Other specified spondylopathies, lumbar region
CPT/HCPCS: 72100

== ENCOUNTER 2021-04-04 00:52 | Observation (INO) | payer OTHER ==
[~2021-04-04] VITALS: Ht 167.6 cm; Wt 110.8 kg
--- NOTE | 2021-04-04 01:00 | PHYS DOC ---
Past History Past Medical History: Anxiety, Bronchitis, Cancer, COPD, Depression, Diabetes, Fibromyalgia, GERD, High Cholesterol, Hypertension, IBS, Migraines, UTI, Other Additional Past Medical Histor: MS; metastatic cancer of cervix with mets to uterus, bladder, abdomen Past Surgical History: Cancer Surgery, , Other Additional Past Surgical Histo: D & C-x3; repair of hole in eardrum-Lt; wisdom teeth Smoking: Cigarettes Alcohol Use: None Drug Use: None Adult General HPI HPI Patient is a 45-year-old female with multiple comorbidities who presents to the emergency department with a chief complaint of dry cough, body aches, and watery diarrhea. States she has not had her Covid vaccine. States that she was around some people with Covid about 3 weeks ago. Denies any recent traumas, travels, fevers, rash, chest pain, abdominal pain, vomiting, dysuria, hematuria or blood in the stool. Review of Systems Review of Systems Review of systems otherwise unremarkable except noted in HPI Allergies Allergies Allergies Coded Allergies Type Severity Reaction Last Updated Verified iodine Allergy Severe Shortness of Air 08/26/20 Yes Physical Exam Physical Exam Constitutional: Well developed, well nourished, no acute distress, non-toxic appearance. [] HENT: Normocephalic, atraumatic, bilateral external ears normal, oropharynx moist, no oral exudates, nose normal. [] Eyes: conjunctiva normal, no discharge. [] Neck: Normal range of motion, no tenderness, supple, no stridor. [] Cardiovascular:Heart rate regular rhythm, no murmur [] Lungs & Thorax: Mild bilateral rhonchi and congestion, no wheeze, no accessory muscle use Abdomen: soft, no tenderness, no masses, no pulsatile masses. [] Skin: Warm, dry, no erythema, no rash. [] Back: no CVA tenderness. [] Extremities: No tenderness, no cyanosis, no clubbing, ROM intact, no edema. [] Neurologic: Alert and oriented X 3, normal motor function, normal sensory function, no focal deficits noted. [] Psychologic: Affect normal, judgement normal, mood normal. [] EKG EKG [] Radiology/Procedures Radiology/Procedures [] Heart Score C/O Chest Pain: Yes HEART Score for Chest Pain: HEART Score for Chest Pain Response (Comments) Value History Slighlty/Non-Suspicious 0 ECG Nonspecific Repolarizatio 1 Age >45 - < 65 1 Risk Factors 1 or 2 Risk Factors 1 Troponin < Normal Limit 0 Total 3 Risk Factors: Risk Factors: DM, Current or recent (<one month) smoker, HTN, HLP, family history of CAD, obesity. Risk Scores: Risk Factors: DM, Current or recent (<one month) smoker, HTN, HLP, family history of CAD, obesity. Course & Med Decision Making Course & Med Decision Making Patient is a 45-year-old female who presents with multiple symptoms/chief complaints suggestive of Covid/flu/cold etiology with probable COPD exacerbation Vital signs notable for sinus tachycardia and tachypnea. Physical exam noted above. Given steroids. Given breathing treatment. EKG with a rate of 112, QRS of 82, QTc 449, no STEMI. Troponin not concerning. Elevated D-dimer. Chest x-ray with no obvious consolidations. Started on antibiotics secondary to COPD exacerbation. Given patient's active cervical cancer, tachycardia, elevated D-dimer and pleuritic chest pain, patient desires PE rule out but is allergic to iodine. Discussed findings with patient and recommended admission to [facility] for VQ scan in the morning. Patient grateful, verbalized understanding and agreed with plan of admission for VQ scan in the morning. Given dose of Lovenox. Discussed patient with hospitalist who agreed with plan of admission. [] Dragon Disclaimer Dragon Disclaimer This electronic medical record was generated, in whole or in part, using a voice recognition dictation system. Departure Departure: Impression: Primary Impression: COPD exacerbation Additional Impressions: Pleuritic chest pain Elevated d-dimer Disposition: ADMITTED INPATIENT Admitting Physician: Ricco Can Condition: STABLE Referrals: LEWIS FRIAS (PCP) Problem Qualifiers DEMETRIA HERNANDEZ MD Apr 04, 2021 01:00
[2021-04-04] MEDS ORDERED: IPRATRPIUM/ALBUTEROL 0.5/2.5MG 3 ML NEBU. NEB ONE (01:30)
[2021-04-04] MEDS ORDERED: DEXAMETHASONE 4 MG TABLET PO ONE (01:30)
--- NOTE | 2021-04-04 01:46 | EKG ---
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
[2021-04-04 01:47] LABS: BASO # 0.1 x10^3/uL (0.0-0.2); BASO % 1 % (0-3); EOS # 0.2 x10^3/uL (0.0-0.7); EOS % 2 % (0-3); HEMATOCRIT 43.4 % (36.0-47.0); HEMOGLOBIN 14.6 g/dL (12.0-15.5); LYMPH % 35 % (24-48); MEAN CORPUSCULAR HEMOGLOBIN 31 pg (25-35); MEAN CORPUSCULAR HGB CONC 34 g/dL (31-37); MEAN CORPUSCULAR VOLUME 93 fL (79-100); MONO # 0.5 x10^3/uL (0.0-1.1); MONO % 5 % (0-9); NEUT # 6.6 x10^3uL (1.8-7.7); NEUT % 58 % (31-73); PLATELET COUNT 157 x10^3/uL (140-400); RED BLOOD COUNT 4.67 x10^6/uL (3.50-5.40); RED CELL DISTRIBUTION WIDTH 13.8 % (11.5-14.5); WHITE BLOOD COUNT 11.4 x10^3/uL (4.0-11.0)
[2021-04-04 01:57] LABS: BACTERIA,URINE 0 /HPF (0-FEW); BILIRUBIN,URINE NEG (NEG); CLARITY,URINE CLEAR; COLOR,URINE YELLOW; GLUCOSE,URINE >=1000 mg/dL (NEG); NITRITE,URINE NEG (NEG); RBC,URINE 0 /HPF (0-2); SQUAMOUS EPITHELIAL CELL,UR FEW /LPF; UROBILINOGEN,URINE 0.2 mg/dL (0.2 mg/dL); WBC,URINE OCC /HPF (0-4)
[2021-04-04 01:58] LABS: CALCIUM 9.1 mg/dL (8.5-10.1)
[2021-04-04 02:00] LABS: INFLUENZA A PATIENT NEGATIVE (NEGATIVE); INFLUENZA B PATIENT NEGATIVE (NEGATIVE)
[2021-04-04 02:08] LABS: ALBUMIN 3.8 g/dL (3.4-5.0); ALBUMIN/GLOBULIN RATIO 1.2 (1.0-1.7); TOTAL BILIRUBIN 0.3 mg/dL (0.2-1.0); TOTAL PROTEIN 7.1 g/dL (6.4-8.2)
[2021-04-04] MEDS ORDERED: IV NORMAL SALINE 50ML 50 ML ONE (02:42)
[2021-04-04] MEDS ORDERED: cefTRIAXone SODIUM 1 GM VIAL ONE (02:42)
[2021-04-04] MEDS ORDERED: ENOXAPARIN ** NOTE DOSE ** SYRINGE SQ ONE (02:45)
[2021-04-04] MEDS ORDERED: AZITHROMYCIN 250 MG TABLET. PO ONE (02:45)
--- NOTE | 2021-04-04 02:49 | RAD ---
XR CHEST 1V Clinical Indication: Reason: CP / Comparison: AP chest October 06, 2020. Findings: The cardiomediastinal silhouette is normal. Lungs are clear. There is no pneumothorax. No pleural eff usion is appreciated. No acute bone abnormality. IMPRESSION: No acute cardiopulmonary process. Electronically signed by: Patrick Dela Cruz MD (04/04/2021 2:47 AM) [facility]
[2021-04-04] MEDS: MORPHINE SULFATE 2 MG/ML DISP.SYRIN. IVP PRN ×4 (03:33→20:04)
--- NOTE | 2021-04-04 04:07 | NUR ---
The patient, HYUN PULIDO, 45 y/o, F admitted by SHAYNE MUNSON MD, was given written information regarding hospital policies, unit procedures and contact persons. Valuables were checked and logged. Call light in reach.
[2021-04-04 04:25] VITALS: BP 109/76
[2021-04-04] MEDS ORDERED: PROMETHAZINE 25 MG TABLET. PO PRN (08:00)
[2021-04-04] MEDS ORDERED: diazePAM 5 MG TABLET. PO PRN (08:00)
[2021-04-04] MEDS ORDERED: oxyCODONE/APAP 5/325 1 TAB TABLET PO PRN (08:00)
[2021-04-04] MEDS ORDERED: INSULIN REGULAR 100 UNIT/ML 3ML VIAL. SQ SCH (08:00)
[2021-04-04] MEDS: GABAPENTIN 300 MG CAPSULE. PO SCH ×3 (08:51→20:10)
[2021-04-04] MEDS: MODAFINIL 100 MG TABLET PO SCH (08:51)
[2021-04-04] MEDS: MILNACIPRAN 50 MG TABLET PO SCH ×2 (08:52→20:10)
[2021-04-04] MEDS: LISINOPRIL 10 MG TABLET PO SCH (08:52)
[2021-04-04 11:28] VITALS: BP 143/77
--- NOTE | 2021-04-04 11:40 | NUR ---
Nursing note PT in bed, morning assessments done, PT verbalized she feels week, blood glucose assessed and elevated. Doctor notified of PT glucose level, insulin ordered and administered per doctors orders. assessments documented. PT verbalized she is hungry and needs something to eat. Nurse called radiology to make sure the PT can have something to eat before her test and was told the PT could eat and is not required to be NPO for the test. Tray ordered for the PT. PT in bed, morning medications administered per doctors ordered. Eating breakfast, verbalized no other need, bed low call light within reach. Will conitnue to monitor.
[2021-04-04] MEDS ORDERED: INSULIN REGULAR 100 UNIT/ML 3ML VIAL. SQ ONE (12:00)
[2021-04-04] MEDS: IV NORMAL SALINE 1,000ML 1,000 ML IV SCH ×3 (12:02→15:55)
--- NOTE | 2021-04-04 12:52 | NUR ---
Nursing notes PT in bed, blood glucose assessed by PILLOWCASE CLEANER, and its elevated. Doctor notified of PT blood glucose level, and the doctor recommended insulin and IV fluids for the PT stat. Insulin and IV fluids administered per doctors orders. Critical results documented. PT in bed, reports do dizziness but some weakness. PT reassed after 10mins and PT verbalized she is feeling much better and will like to have a shower. PT in bed, call light within reach. Will continue to monitor.
[2021-04-04] MEDS: IV NORMAL SALINE 1,000ML 1,000 ML IV ONE ×2 (15:00→15:15)
[2021-04-04 15:18] VITALS: BP 142/62
--- NOTE | 2021-04-04 15:21 | NUR ---
Nursing note PT walking around the room, heart rate at 130bpm. Doctor ordered for IV fluids to be administered to the PT bolus and a second bag to run at 150mls/hr. IV fluid started per doctors orders. PT in bed, verbalized no pain or discomfort, no other needs, bed low call light within reach will continue to monitor.
[2021-04-04] MEDS: INSULIN LISPRO 300 UNITS/3 ML VIAL. SQ SCH (17:07)
--- NOTE | 2021-04-04 19:56 | HP ---
DATE OF SERVICE: 04/04/2021 ADMIT DATE: 04/04/2021 HISTORY OF PRESENT ILLNESS: This is a 45-year-old female patient who presented to the Emergency Room with a chief complaint of a dry cough, body aches and watery diarrhea. She states she has not had any COVID vaccine, states that she was around some people with COVID about 3 weeks ago; however, when I asked her myself, she stated that she has chest pain as if there is a heavy weight on her chest. The chest pain started when she was sitting in her chair in bed. She rated it as an 8-9/10, associated with diaphoresis and nausea, but no vomiting or shortness of breath. She also had pain in her left side of the face and also shoulder pain. She was extensively investigated in the Emergency Room and her lab work showed that her white cell count was slightly elevated at 11,000. Her chemistry revealed that she has marked hyperglycemia without ketoacidosis. Her D-dimer was slightly elevated at 0.62. Urinalysis was mostly unremarkable and urine test was negative. Her chest x-ray showed that the cardiomediastinal silhouette is normal, lungs are clear. There is no pneumothorax and no pleural effusion is appreciated. No acute bony abnormalities. The patient was admitted to do a V/Q scan, as she apparently has a severe allergic reaction to iodine. PAST MEDICAL HISTORY: Significant for type 2 diabetes mellitus that seems to be poorly controlled, hypertension, hyperlipidemia, multiple sclerosis, chronic kidney disease, hypothyroidism, seizure disorder and cervical cancer. PAST SURGICAL HISTORY: Significant for 8 C-sections, ear surgery, left heart catheterization and prior surgery for her cervical cancer. ALLERGIES: SHE IS ALLERGIC TO IODINE. MEDICATIONS: She is currently on following medications: She is on promethazine 25 mg every 8 hours, cephalexin 750 mg 3 times a day for 14 days for dental infection, atorvastatin calcium 80 mg at bedtime, lisinopril 10 mg daily, methadone 10 mg every 8 hours, oxycodone/APAP, Percocet 5/325 one tablet twice a day, gabapentin 300 mg 3 times a day, modafinil 100 mg once a day, diazepam 5 mg 3 times a day, Savella 50 mg twice a day and lansoprazole 30 mg daily. FAMILY HISTORY: She has 3 brothers and one sister, none of them is full brother or sister. Her father in his 40s due to myocardial infarction, recurrent Hodgkin lymphoma. Mother is still alive and has diabetes and liver disease. SOCIAL HISTORY: She is , has 3 sons and 5 daughters. She smokes like 5 cigarettes a week. According to her, she does not drink alcohol or recreational drugs. REVIEW OF SYSTEMS: As per history of present illness. PHYSICAL EXAMINATION: GENERAL: On arrival to the Emergency Room, she looked well and was clearly in no apparent respiratory distress. There was no pallor, jaundice, cyanosis or thyromegaly. No jugular venous distention. No limb edema. VITAL SIGNS: Her heart rate was 118, blood pressure was 149/90, temperature was 98.4, respiratory rate was 24 and oxygen saturation was 99% on room air. HEAD, EYES, EARS, NOSE AND THROAT: Normocephalic, atraumatic. NECK: Supple. HEART: Showed normal first and second heart sounds, no gallop or murmur. CHEST: Clear to auscultation, no crepitation or rhonchi. ABDOMEN: Distended, soft, nontender. NEUROLOGIC: She is awake, alert, responding appropriately. Cranial nerves intact. She moves upper extremities to much greater extent than lower extremities. LABORATORY DATA: Her lab work on arrival showed a white cell count of 11,400, hemoglobin 14.6, hematocrit 44, MCV 93 and platelet count of 157,000. Her chemistry showed a serum sodium of 140, potassium 4, chloride 101, bicarbonate 25, anion gap of 14, BUN 12, creatinine 1, estimated GFR was 60 mL per minute. Her glucose was 365, calcium was 9.1. Total bilirubin, AST, ALT and alkaline phosphatase were normal. Total protein 7.1, albumin was 3.8. IMAGING: Her chest x-ray was unremarkable and showed no acute cardiopulmonary process. ASSESSMENT AND PLAN: My plan is to order two more sets of cardiac enzyme and also order venous Doppler ultrasound of both lower extremities, and if there is any evidence that she has deep vein thrombosis, we will start her on apixaban. Given that she is allergic to iodine and there is only perfusion without ventilation that this is probably going to be useless. Meanwhile, we will reconcile all her medications and attempt to achieve a better control of her blood sugar. KELLY/LINA DR: Veronica TID: [id number]
[2021-04-04] MEDS: metFORMIN XR 500 MG TAB.ER.24H PO SCH (20:10)
[2021-04-04] MEDS ORDERED: ATORVASTATIN CALCIUM 10 MG TABLET. PO SCH (21:00)
[2021-04-04] MEDS ORDERED: INSULIN GLARGINE SYRINGE. SQ SCH (21:00)
[2021-04-04 21:24] VITALS: BP 114/72
[2021-04-05 00:41] VITALS: BP 128/85
[2021-04-05] MEDS: IV NORMAL SALINE 1,000ML 1,000 ML IV SCH (03:07)
[2021-04-05 06:03] VITALS: BP 126/86
--- NOTE | 2021-04-05 06:12 | NUR ---
Patient has been on her phone and face timing with people and awake most of the night. Her heart rate is tachy at times, up to 140 bpm. Patient reports pain in her legs, states this is not a new problem and that it is neuropathy. Multiple PRN medications given throughout the night, see EMAR. Patient had friends/family deliver her turkmen food, some clothing and peanut butter and crackers. Nurse was asked to microwave turkmen food for patient and obliged. Education provided to patient regarding diabetes and proper diet. (and that a diet consisting of rice and crackers would elevate her blood sugar, patient seemed uninterested). Patient states that her blood glucose has always been poorly controlled. Her HS blood sugar was 299, there is a dietary consult in. Patient also stated that she does not take Gabapentin, that she now takes Lyrica and she gets the RX filled at [facility]. She did take the HS gabapentin but would like nursing staff to clarify her medications in the morning with doctor and [facility]. Patient is scheduled to have a VQ scan .
[2021-04-05 06:51] LABS: BASO % 0 % (0-3); EOS % 0 % (0-3); HEMATOCRIT 38.4 % (36.0-47.0); LYMPH # 2.7 x10^3/uL (1.0-4.8); LYMPH % 20 % (24-48); MEAN CORPUSCULAR HEMOGLOBIN 31 pg (25-35); MEAN CORPUSCULAR HGB CONC 34 g/dL (31-37); MEAN CORPUSCULAR VOLUME 92 fL (79-100); MONO # 0.7 x10^3/uL (0.0-1.1); MONO % 5 % (0-9); NEUT # 10.4 x10^3uL (1.8-7.7); NEUT % 75 % (31-73); PLATELET COUNT 137 x10^3/uL (140-400); RED BLOOD COUNT 4.19 x10^6/uL (3.50-5.40); RED CELL DISTRIBUTION WIDTH 13.9 % (11.5-14.5); WHITE BLOOD COUNT 13.9 x10^3/uL (4.0-11.0)
[2021-04-05 07:03] LABS: CALCIUM 8.5 mg/dL (8.5-10.1); CREATININE 0.9 mg/dL (0.6-1.0); GFR 67.7; POTASSIUM 4.1 mmol/L (3.5-5.1)
--- NOTE | 2021-04-05 08:23 | RAD ---
EXAMINATION: US BILATERAL LOWEREXTREMITY VENOUS DOPPLER (LOWER EXTREMITY VENOUS ULTRASOUND) CLINICAL HISTORY: Lower extremity edema. TECHNIQUE: Sonographic grayscale images obtained of the bilateral lower extremity deep venous systems with color flow Doppler, compression, and augmentation techniques as indicated. Images obtained and stored in a permanent archive. COMPARISON: None FINDINGS: RIGHT: No evidence of absent flow or incompressibility within the common femoral vein, femoral vein, or popl iteal vein. Visualized calf veins appear patent on limited evaluation. LEFT: No evidence of absent flow or incompressibility within the common femoral vein, femoral vein, or popl iteal vein. Visualized calf veins appear patent on limited evaluation. IMPRESSION: No evidence of bilateral lower extremity DVT. Electronically signed by: Arian Charles DO (04/05/2021 8:21 AM) [id number]
[2021-04-05] MEDS: metFORMIN XR 500 MG TAB.ER.24H PO SCH (09:33)
[2021-04-05] MEDS: MODAFINIL 100 MG TABLET PO SCH (09:33)
[2021-04-05] MEDS: GABAPENTIN 300 MG CAPSULE. PO SCH ×2 (09:33→13:03)
[2021-04-05] MEDS: LISINOPRIL 10 MG TABLET PO SCH (09:34)
[2021-04-05] MEDS: MILNACIPRAN 50 MG TABLET PO SCH (09:34)
[2021-04-05] MEDS: INSULIN LISPRO 300 UNITS/3 ML VIAL. SQ SCH ×2 (09:36→13:05)
[2021-04-05 11:29] VITALS: BP 118/73
--- NOTE | 2021-04-05 13:46 | RAD ---
EXAM: Pulmonary ventilation-perfusion scan. HISTORY: Chest pain. Chronic cough. TECHNIQUE: Anterior projection ventilation images of the chest were obtained during the inhalation of Xe-133 gas. Anterior, posterior, bilateral oblique and bilateral lateral images of the chest were ob tained following the administration of Tc-99m MAA. COMPARISON: Chest radiograph dated 04/04/2021. FINDINGS: There is symmetric accumulation of radiotracer within both lungs on ventilation images. The re is heterogeneous radiotracer activity within both lungs on perfusion images. There is no ventilati on-perfusion mismatch to suggest pulmonary embolism. IMPRESSION: Negative for pulmonary embolism. Electronically signed by: Margot Salazar MD (04/05/2021 1:44 PM) [id number]
[2021-04-05] MEDS ORDERED: FLUT9.9S NS (14:21)
[2021-04-05] MEDS ORDERED: INSU100C SQ (14:21)
[2021-04-05] MEDS ORDERED: ALBU2.5V8 IH (14:21)
[2021-04-05] MEDS ORDERED: METF-658 PO (14:21)
--- NOTE | 2021-04-05 15:20 | NUR ---
Nsg Note: discharge pt discharged home at 1505 via w/c accomp by family who picked her up. all personal items went with pt
[2021-04-05 17:07] LABS: CHOLESTEROL/HDL RATIO 6.9
--- NOTE | 2021-04-05 19:49 | DS ---
DATE OF DISCHARGE: 04/05/2021 HOSPITAL COURSE: The patient is a 45-year-old female patient who came through the Emergency Room with a complaint of chest pain described as a heavy weight on her chest, associated with diaphoresis and nausea, but no vomiting or shortness of breath. She was extensively investigated in the Emergency Room with lab work and imaging studies. She had 3 sets of cardiac enzymes that were negative and ruled out acute myocardial infarction. We did venous Doppler ultrasound as her D-dimer was slightly elevated. We did venous Doppler ultrasound, which showed absent flow or incompressibility within the common femoral vein, femoral vein, or popliteal vein. Visualized veins appear patent on limited evaluation. We did also a V/Q scan given that her D-dimer was slightly elevated and it showed that there is asymmetric accumulation of radiotracer within both lungs. On ventilation images, there is heterogenous radiotracer activity within both lungs. On perfusion imaging, there is no ventilation perfusion mismatch to suggest pulmonary embolism. The impression is that the patient's test is negative for pulmonary embolism as the patient remained stable. Her blood sugar is obviously not yet optimally controlled, but much better. When she came to us, her blood sugar was more than 500. Her Humalog insulin was increased to 30 units and her Soliqua, I advised her to increase to 60 units per day and I added metformin. PHYSICAL EXAMINATION: GENERAL: On day of discharge, the patient looked well and was clearly in no apparent respiratory distress. No pallor, jaundice, or cyanosis. No lymphadenopathy, no thyromegaly, no jugular venous distention. No limb edema. VITAL SIGNS: Her heart rate was 82, blood pressure was 118/73, temperature 97.2, respiratory rate was 16, and oxygen saturation was 97% on room air. HEAD, EYES, EARS, NOSE, AND THROAT: Showed normocephalic, atraumatic. NECK: Supple. HEART: Showed normal first and second heart sounds. No gallop, rub, or murmur. CHEST: Clear to auscultation. No crepitation or rhonchi. ABDOMEN: Soft, nontender. NEUROLOGIC: She is grossly intact. LABORATORY DATA: Her lab work showed a white cell count of 13,900, hemoglobin 13, hematocrit 38, MCV 92, and platelet count of 137,000. Her chemistry showed a serum sodium 138, potassium 4.1, chloride 101, bicarbonate 26, anion gap of 11, BUN 16, creatinine 0.9. Estimated GFR was 68 mL per minute. Her glucose was 346 and calcium was 8.5. DISCHARGE MEDICATIONS: The patient was discharged home to continue on all her home medications. I added albuterol sulfate 2 puffs every 4 hours as needed, Flonase nasal spray 2 sprays to each nostril once a day. I also increased her Humalog insulin to 30 units before meals and added metformin extended release 500 mg twice a day. She should continue on her atorvastatin calcium 10 mg at bedtime, diazepam 5 mg 3 times a day, gabapentin 300 mg 3 times a day, lansoprazole for Prevacid 30 mg once a day, lisinopril 10 mg once a day, methadone 10 mg every 8 hours and milnacipran for Savella 50 mg tablet twice a day, modafinil 100 mg once a day, oxycodone/APAP 5/325 one tablet twice a day, promethazine 25 mg every 8 hours as needed. FINAL DISCHARGE DIAGNOSES: 1. Chest pain, acute myocardial infarction ruled out. 2. Poorly controlled diabetes mellitus for which I increased her Humalog, advised her to increase her Soliqua and added metformin. 3. Hypertension. 4. Hyperlipidemia. 5. Multiple sclerosis. 6. Chronic kidney disease. 7. Hypothyroidism. 8. Seizure disorder. 9. Cervical cancer. According to her, she was told that it is inoperable, so I advised her to look for a second opinion to see if surgery is not still an option. NAKUL DR: Veronica TID: [id number]
== END 2021-04-05 15:10 | disposition home or self-care (01) ==
LOC: ER 00:52 → EEVIPCON 03:01 → INTOOBSV 03:01 → ER HOLD 03:01 → 1 SOUTH 04:04
PROVIDERS: ADMIT Hospitalist; ATTEND Hospitalist
DX: R07.89 Other chest pain (principal); Z20.822 Contact with and (suspected) exposure to COVID-19; J44.1 Chronic obstructive pulmonary disease with (acute) exacerbation; E03.9 Hypothyroidism, unspecified; E11.65 Type 2 diabetes mellitus with hyperglycemia; E11.22 Type 2 diabetes mellitus with diabetic chronic kidney disease; E78.00 Pure hypercholesterolemia, unspecified; E78.5 Hyperlipidemia, unspecified; G35 Multiple sclerosis; G40.909 Epilepsy, unspecified, not intractable, without status epilepticus; I12.9 Hypertensive chronic kidney disease with stage 1 through stage 4 chronic kidney disease, or unspecified chronic kidney disease; N18.9 Chronic kidney disease, unspecified; C53.9 Malignant neoplasm of cervix uteri, unspecified; K58.0 Irritable bowel syndrome with diarrhea; M79.7 Fibromyalgia; T50.8X5A Adverse effect of diagnostic agents, initial encounter; F17.210 Nicotine dependence, cigarettes, uncomplicated; R77.8 Other specified abnormalities of plasma proteins; Z85.41 Personal history of malignant neoplasm of cervix uteri; Z91.041 Radiographic dye allergy status; Z90.49 Acquired absence of other specified parts of digestive tract; Z79.899 Other long term (current) drug therapy; Z98.890 Other specified postprocedural states
CPT/HCPCS: 36415; 71045; 78582; 80048; 80053; 80061; 81001; 81025; 82947; 83690; 84484; 85025; 85379; 87428; 93005; 93970; 94640; 96361; 96365; 96372; 96375; 96376; 99285; A9540; A9558; G0378; J0696; J1650; J1815; J2270; J3010; J7030; J8540; U0003; G0379

== ENCOUNTER 2021-07-13 22:46 | Emergency (ER) | payer OTHER ==
[~2021-07-13] VITALS: Ht 167.6 cm; Wt 113.6 kg
[~2021-07-13 22:46] MED LIST changes: +ALBU2.5V8 IH; +FLUT9.9S NS; +INSU100C SQ; +METF-658 PO
--- NOTE | 2021-07-13 23:13 | PHYS DOC ---
Past History Past Medical History: Anxiety, Bronchitis, Cancer, COPD, Depression, Diabetes, Fibromyalgia, GERD, High Cholesterol, Hypertension, IBS, Migraines, UTI, Other Additional Past Medical Histor: Multiple Sclerosis, cervical CA Past Surgical History: Cancer Surgery, , Other Additional Past Surgical Histo: D&C X 3, Repair of hole in left eardrum, [place] teeth extraction Smoking: Cigarettes Alcohol Use: None Drug Use: None General Adult EDM: Chief Complaint: CHEST PAIN HPI: HPI: 45-year-old female presents with chest pain. The pain is currently a heavy pressure of moderate to severe intensity. It is gotten worse over the last few hours. It started while she was sitting around. Nothing seems to make it better or worse. The patient has had intermittent chest pain for some time. She is not sure if she has an arrhythmia or exactly what causes this. She has had a cath in the past and she did not do any stents. She does not recall that the stating there was anything they were monitoring. Patient stays history of cervical cancer for which she is not getting any treatment. She also states that her blood sugar is very high. It was 400 and something earlier today she took it a second time and it was above her meter which reads to 600. Review of Systems: Review of Systems: Constitutional: Denies fever or chills. Hyperglycemia Eyes: Denies change in visual acuity HENT: Denies nasal congestion or sore throat Respiratory: Denies cough or shortness of breath Cardiovascular: Chest pain GI: Denies abdominal pain, nausea, vomiting, bloody stools or diarrhea : Denies dysuria Musculoskeletal: Denies back pain or joint pain Integument: Denies rash Neurologic: Denies headache, focal weakness or sensory changes Endocrine: Denies polyuria or polydipsia Lymphatic: Denies swollen glands Psychiatric: Denies depression or anxiety Allergies: Allergies: Allergies Coded Allergies Type Severity Reaction Last Updated Verified iodine Allergy Severe Shortness of Air 08/26/20 Yes Physical Exam: PE: Constitutional: Well developed, well nourished, morbidly obese, no acute distress, non-toxic appearance. [] HENT: Normocephalic, atraumatic, bilateral external ears normal, oropharynx moist, no oral exudates, nose normal. [] Eyes: PERRLA, EOMI, conjunctiva normal, no discharge. [] Neck: Normal range of motion, no tenderness, supple, no stridor. [] Cardiovascular: Heart rate 100, regular rhythm, no murmur [] Lungs & Thorax: Bilateral breath sounds clear to auscultation [] Abdomen: Bowel sounds normal, soft, no tenderness, no masses, no pulsatile masses. [] Skin: Warm, dry, no erythema, no rash. [] Back: No tenderness, no CVA tenderness. [] Extremities: No tenderness, no cyanosis, no clubbing, ROM intact, no edema. [] Neurologic: Alert and oriented X 3, normal motor function, normal sensory function, no focal deficits noted. [] Psychologic: Affect normal, judgement normal, mood anxious. [] EKG: EKG: [] Radiology/Procedures: Radiology/Procedures: [] Heart Score: C/O Chest Pain: Yes HEART Score for Chest Pain: HEART Score for Chest Pain Response (Comments) Value History Moderately Suspicious 1 ECG Normal 0 Age >45 - < 65 1 Risk Factors 1 or 2 Risk Factors 1 Total 3 Risk Factors: Risk Factors: DM, Current or recent (<one month) smoker, HTN, HLP, family history of CAD, obesity. Risk Scores: Score 0 - 3: 2.5% MACE over next 6 weeks - Discharge Home Score 4 - 6: 20.3% MACE over next 6 weeks - Admit for Clinical Observation Score 7 - 10: 72.7% MACE over next 6 weeks - Early Invasive Strategies Course & Med Decision Making: Course & Med Decision Making Pertinent Labs and Imaging studies reviewed. (See chart for details) The patient's EKG is unremarkable. Her labs are unremarkable except for an elevated blood sugar. Her chest x-ray is negative for acute findings. Her troponin is negative. I have given the patient a liter normal saline and her blood sugar has improved to 308. She did take doses of her home insulin prior to coming to the hospital. Her anion gap is normal. The patient has been given a dose of morphine for her discomfort. I am not exactly sure what is causing her pain. Could be musculoskeletal or GI in nature. She is stable for discharge at this time. [] Dragon Disclaimer: Dragon Disclaimer: This electronic medical record was generated, in whole or in part, using a voice recognition dictation system. Departure Departure: Impression: Primary Impression: Chest pain Additional Impression: Poorly controlled type 2 diabetes mellitus Disposition: HOME / SELF CARE / HOMELESS Condition: STABLE Referrals: LEWIS FRIAS (PCP) Patient Instructions: Chest Pain (Nonspecific), [id number] NATANAEL SHIELDS DO July 13, 2021 23:13
[2021-07-13] MEDS ORDERED: INSULIN REGULAR 100 UNIT/ML 3ML VIAL. IV ONE (23:15)
[2021-07-13] MEDS ORDERED: IV NORMAL SALINE 1,000ML 1,000 ML IV ONE (23:15)
[2021-07-13 23:35] LABS: BASO # 0.1 x10^3/uL (0.0-0.2); BASO % 1 % (0-3); EOS # 0.1 x10^3/uL (0.0-0.7); EOS % 1 % (0-3); HEMATOCRIT 39.3 % (36.0-47.0); HEMOGLOBIN 13.2 g/dL (12.0-15.5); LYMPH # 2.9 x10^3/uL (1.0-4.8); LYMPH % 26 % (24-48); MEAN CORPUSCULAR HEMOGLOBIN 31 pg (25-35); MEAN CORPUSCULAR HGB CONC 34 g/dL (31-37); MEAN CORPUSCULAR VOLUME 93 fL (79-100); MONO # 0.5 x10^3/uL (0.0-1.1); MONO % 5 % (0-9); NEUT # 7.8 x10^3uL (1.8-7.7); NEUT % 68 % (31-73); PLATELET COUNT 140 x10^3/uL (140-400); RED BLOOD COUNT 4.21 x10^6/uL (3.50-5.40); RED CELL DISTRIBUTION WIDTH 13.6 % (11.5-14.5); WHITE BLOOD COUNT 11.5 x10^3/uL (4.0-11.0)
[2021-07-13 23:52] LABS: CALCIUM 8.8 mg/dL (8.5-10.1); POTASSIUM 4.2 mmol/L (3.5-5.1)
[2021-07-13 23:58] LABS: ALBUMIN 3.3 g/dL (3.4-5.0); ALBUMIN/GLOBULIN RATIO 1.1 (1.0-1.7); TOTAL BILIRUBIN 0.2 mg/dL (0.2-1.0); TOTAL PROTEIN 6.4 g/dL (6.4-8.2)
--- NOTE | 2021-07-14 00:20 | RAD ---
INDICATION: Reason: CHEST PAIN / Spl. Instructions: / History: COMPARISON: March 2021 FINDINGS: Frontal view of chest obtained. Cardiac silhouette is similar to prior. Appearance of the lungs is similar to prior without a definite new region of consolidation IMPRESSION: * Similar exam compared to prior without a definite new region of consolidation. Electronically signed by: Yaya Arredondo MD (07/14/2021 12:18 AM) [id number]
[2021-07-14] MEDS ORDERED: ONDANSETRON PF 4 MG/2 ML VIAL. IVP ONE (00:30)
[2021-07-14] MEDS ORDERED: MORPHINE SULFATE 4 MG/ML DISP.SYRIN. IV ONE (00:30)
[2021-07-14 00:51] VITALS: BP 128/59
--- NOTE | 2021-07-14 00:55 | EKG ---
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
[2021-07-14 01:20] LABS: CLARITY,URINE CLEAR; COLOR,URINE YELLOW; GLUCOSE,URINE 500 mg/dL (NEG); NITRITE,URINE NEG (NEG); RBC,URINE OCC /HPF (0-2); UROBILINOGEN,URINE 0.2 mg/dL (0.2 mg/dL)
[2021-07-14 01:21] LABS: BACTERIA,URINE 0 /HPF (0-FEW); SQUAMOUS EPITHELIAL CELL,UR FEW /LPF; WBC,URINE OCC /HPF (0-4)
[2021-07-14 01:22] LABS: AMPHETAMINE/METHAMPHETAMINE NEG (NEG); BARBITURATES NEG (NEG); BENZODIAZEPINES NEG (NEG); CANNABINOIDS NEG (NEG); COCAINE NEG (NEG); METHADONE NEG (NEG); OPIATES NEG (NEG); PHENCYCLIDINE NEG (NEG)
== END 2021-07-14 01:03 | disposition home or self-care (01) ==
LOC: ER 22:46
DX: R07.89 Other chest pain (principal); E11.65 Type 2 diabetes mellitus with hyperglycemia; J44.9 Chronic obstructive pulmonary disease, unspecified; F41.9 Anxiety disorder, unspecified; F32.9 Major depressive disorder, single episode, unspecified; M79.7 Fibromyalgia; K21.9 Gastro-esophageal reflux disease without esophagitis; E78.00 Pure hypercholesterolemia, unspecified; I10 Essential (primary) hypertension; G43.909 Migraine, unspecified, not intractable, without status migrainosus; F17.210 Nicotine dependence, cigarettes, uncomplicated; Z87.440 Personal history of urinary (tract) infections; Z88.8 Allergy status to other drugs, medicaments and biological substances
CPT/HCPCS: 36415; 71045; 80053; 80307; 81001; 81025; 82947; 84484; 85025; 93005; 96361; 96374; 96375; 99285; J2270; J2405; J7030

== ENCOUNTER 2021-07-16 02:39 | Emergency (ER) | payer OTHER ==
[~2021-07-16] VITALS: Ht 165.1 cm; Wt 117.0 kg
[2021-07-16] MEDS ORDERED: IV NORMAL SALINE 1,000ML 1,000 ML IV ONE (03:30)
[2021-07-16] MEDS ORDERED: ONDANSETRON PF 4 MG/2 ML VIAL. IVP ONE (03:30)
--- NOTE | 2021-07-16 03:33 | PHYS DOC ---
Past History Past Medical History: Anxiety, Bronchitis, Cancer, COPD, Depression, Diabetes, Fibromyalgia, GERD, High Cholesterol, Hypertension, IBS, Migraines, UTI, Other Additional Past Medical Histor: Multiple Sclerosis, cervical CA Past Surgical History: Cancer Surgery Additional Past Surgical Histo: D&C X 3, Repair of hole in left eardrum, [place] teeth extraction Smoking: Cigarettes Alcohol Use: None Drug Use: None General Adult EDM: Chief Complaint: ABDOMINAL PAIN HPI: HPI: 45-year-old female presents with right upper quadrant abdominal pain. She has been having intermittent pain for least a couple of weeks. She was recently seen in this emergency room by myself but there is hopefully less chest pain and elevated blood sugar at that time. The patient feels like it is more related to her upper abdomen. She is concerned about her gallbladder. The pain used to come and go but it has been nearly constant for the last 2 days. It is mild to moderate at baseline and becomes severe at times. She has not noticed a co rrelation with food. She denies falls or trauma. Denies fever or chills. Review of Systems: Review of Systems: Constitutional: Denies fever or chills Eyes: Denies change in visual acuity HENT: Denies nasal congestion or sore throat Respiratory: Denies cough or shortness of breath Cardiovascular: Denies chest pain or edema GI: Right upper quadrant abdominal pain, nausea. Denies vomiting, bloody stools or diarrhea : Denies dysuria Musculoskeletal: Denies back pain or joint pain Integument: Denies rash Neurologic: Denies headache, focal weakness or sensory changes Endocrine: Denies polyuria or polydipsia Lymphatic: Denies swollen glands Psychiatric: Denies depression or anxiety Current Medications: Current Meds: Current Medications Medications (Trade) Dose Ordered Sig/Diaz Start Time Stop Time Status Last Admin Dose Admin Ondansetron HCl (Zofran) 4 mg 1X ONCE 07/16/21 03:30 07/16/21 03:31 07/16/21 03:24 4 MG Sodium Chloride 1,000 ml @ 1,000 mls/hr 1X ONCE 07/16/21 03:30 07/16/21 04:29 07/16/21 03:24 1,000 MLS/HR Allergies: Allergies: Allergies Coded Allergies Type Severity Reaction Last Updated Verified iodine Allergy Severe Shortness of Air 08/26/20 Yes Physical Exam: PE: Constitutional: Well developed, well nourished, morbidly obese, mild acute distress, non-toxic appearance. [] HENT: Normocephalic, atraumatic, bilateral external ears normal, oropharynx moist, no oral exudates, nose normal. [] Eyes: PERRLA, EOMI, conjunctiva normal, no discharge. [] Neck: Normal range of motion, no tenderness, supple, no stridor. [] Cardiovascular: Heart rate regular rhythm, no murmur [] Lungs & Thorax: Bilateral breath sounds clear to auscultation [] Abdomen: Bowel sounds normal, soft, epigastric and right upper quadrant tenderness, no masses, no pulsatile masses. [] Skin: Warm, dry, no erythema, no rash. [] Back: No tenderness, no CVA tenderness. [] Extremities: No tenderness, no cyanosis, no clubbing, ROM intact, no edema. [] Neurologic: Alert and oriented X 3, normal motor function, normal sensory function, no focal deficits noted. [] Psychologic: Affect normal, judgement normal, mood normal. [] Current Patient Data: Vital Signs: Vital Signs Date Time Temp Pulse Resp B/P (MAP) Pulse Ox O2 Delivery O2 Flow Rate FiO2 07/16/21 02:57 98.0 98 20 160/69 (99) 98 Room Air EKG: EKG: [] Radiology/Procedures: Radiology/Procedures: [] Impressions: PQRS Compliance Statement: One or more of the following individualized dose reduction techniques were utilized for this examination: 1. Automated exposure control 2. Adjustment of the mA and/or kV according to patient size 3. Use of iterative reconstruction technique CT ABDOMEN+PELVIS WO Clinical Indication: Reason: RUQ pain / Spl. Instructions: / History: Comparison: CT abdomen and pelvis of contrast October 22, 2019. Technique: Helical CT imaging of the abdomen and pelvis is performed without IV or oral contrast. Findings: Evaluation of solid organs and bowel is limited without oral and IV contrast, decreasing sensitivity for detection of abnormal findings. The lung bases are clear. Cardiac size normal. There is fatty infiltration of the liver. There is hepatomegaly. There is cholelithiasis. There are multiple small gallstones. Spleen size upper limits of normal. The pancreas abdominal aorta, and adrenal glands are normal. There is bilateral medullary nephrocalcinosis and tiny nonobstructing renal calculi. There is no hydronephrosis. Small right renal cyst does not require follow-up. Stomach is mildly distended with fluid. There is no dilated small bowel. The appendix is normal. There is moderate colon stool volume. There is no colon wall thickening. No abdominal adenopathy or free fluid. The urinary bladder is normal. The uterus is anteverted. The ovaries are similar in size and demonstrate small follicles. There is trace pelvic free fluid. No acute bone abnormality. IMPRESSION: 1. No acute abdominal or pelvic adenopathy. 2. Fatty infiltration of the liver. Hepatomegaly. 3. Cholelithiasis. 4. Bilateral medullary nephrocalcinosis and tiny nonobstructing renal calculi. 5. Trace pelvic free fluid. Electronically signed by: Patrick Mac MD (07/16/2021 4:43 AM) [facility] DICTATED AND SIGNED BY: PATRICK MAC MD DATE: 07/16/21 0435 CC: NATANAEL SHIELDS DO; LEWIS FRAIS PA ~ Heart Score: C/O Chest Pain: N/A Risk Factors: Risk Factors: DM, Current or recent (<one month) smoker, HTN, HLP, family history of CAD, obesity. Risk Scores: Score 0 - 3: 2.5% MACE over next 6 weeks - Discharge Home Score 4 - 6: 20.3% MACE over next 6 weeks - Admit for Clinical Observation Score 7 - 10: 72.7% MACE over next 6 weeks - Early Invasive Strategies Course & Med Decision Making: Course & Med Decision Making Pertinent Labs and Imaging studies reviewed. (See chart for details) The patient's labs are unremarkable except for an elevated glucose with a normal anion gap. Her CT scan does show gallbladder stones. This could easily be the source of her pain. I have given her 4 morphine in the ER. I will discharge her with prescription for [place]. I recommend that she follow-up with general surgery to discuss gallbladder removal. She is stable for discharge at this time. [] Ayden Disclaimer: Ayden Disclaimer: This electronic medical record was generated, in whole or in part, using a voice recognition dictation system. Departure Departure: Impression: Primary Impression: Cholelithiasis Additional Impression: Right upper quadrant abdominal pain Disposition: HOME / SELF CARE / HOMELESS Condition: STABLE Referrals: LEWIS FRIAS (PCP) Patient Instructions: Cholelithiasis, [id number] Scripts Hydrocodone/Acetaminophen (Hydrocodone-Acetamin 5-325 mg) 1 Each Tablet 1 EACH PO Q4-6HRS PRN for PAIN, #15 TAB Prov: NATANAEL SHIELDS DO 07/16/21 NATANAEL SHIELDS DO July 16, 2021 03:33
[2021-07-16 03:48] LABS: BASO # 0.1 x10^3/uL (0.0-0.2); BASO % 1 % (0-3); EOS # 0.2 x10^3/uL (0.0-0.7); EOS % 2 % (0-3); HEMATOCRIT 39.8 % (36.0-47.0); HEMOGLOBIN 13.2 g/dL (12.0-15.5); LYMPH # 3.4 x10^3/uL (1.0-4.8); LYMPH % 38 % (24-48); MEAN CORPUSCULAR HEMOGLOBIN 31 pg (25-35); MEAN CORPUSCULAR HGB CONC 33 g/dL (31-37); MEAN CORPUSCULAR VOLUME 93 fL (79-100); MONO # 0.5 x10^3/uL (0.0-1.1); MONO % 6 % (0-9); NEUT # 4.8 x10^3uL (1.8-7.7); NEUT % 54 % (31-73); PLATELET COUNT 128 x10^3/uL (140-400); RED BLOOD COUNT 4.26 x10^6/uL (3.50-5.40); RED CELL DISTRIBUTION WIDTH 13.8 % (11.5-14.5); WHITE BLOOD COUNT 8.9 x10^3/uL (4.0-11.0)
[2021-07-16] MEDS ORDERED: MORPHINE SULFATE 4 MG/ML DISP.SYRIN. IV ONE (04:00)
[2021-07-16 04:23] LABS: CALCIUM 9.2 mg/dL (8.5-10.1); CREATININE 0.9 mg/dL (0.6-1.0); GFR 67.7
[2021-07-16 04:30] LABS: ALBUMIN 3.3 g/dL (3.4-5.0); TOTAL BILIRUBIN 0.4 mg/dL (0.2-1.0); TOTAL PROTEIN 6.7 g/dL (6.4-8.2)
--- NOTE | 2021-07-16 04:45 | RAD ---
PQRS Compliance Statement: One or more of the following individualized dose reduction techniques were utilized for this examinat ion: 1. Automated exposure control 2. Adjustment of the mA and/or kV according to patient size 3. Use of iterative reconstruction technique CT ABDOMEN+PELVIS WO Clinical Indication: Reason: RUQ pain / Spl. Instructions: / History: Comparison: CT abdomen and pelvis of contrast October 22, 2019. Technique: Helical CT imaging of the abdomen and pelvis is performed without IV or oral contrast. Findings: Evaluation of solid organs and bowel is limited without oral and IV contrast, decreasing sensitivity for detection of abnormal findings. The lung bases are clear. Cardiac size normal. There is fatty infiltration of the liver. There is hepatomegaly. There is cholelithiasis. There are m ultiple small gallstones. Spleen size upper limits of normal. The pancreas abdominal aorta, and adren al glands are normal. There is bilateral medullary nephrocalcinosis and tiny nonobstructing renal calculi. There is no hydr onephrosis. Small right renal cyst does not require follow-up. Stomach is mildly distended with fluid. There is no dilated small bowel. The appendix is normal. Ther e is moderate colon stool volume. There is no colon wall thickening. No abdominal adenopathy or free fluid. The urinary bladder is normal. The uterus is anteverted. The ovaries are similar in size and demonstr ate small follicles. There is trace pelvic free fluid. No acute bone abnormality. IMPRESSION: 1. No acute abdominal or pelvic adenopathy. 2. Fatty infiltration of the liver. Hepatomegaly. 3. Cholelithiasis. 4. Bilateral medullary nephrocalcinosis and tiny nonobstructing renal calculi. 5. Trace pelvic free fluid. Electronically signed by: Patrick Dela Cruz MD (07/16/2021 4:43 AM) [facility]
[2021-07-16] MEDS ORDERED: HYDR-2759 PO (04:55)
[2021-07-16 04:59] LABS: BACTERIA,URINE 0 /HPF (0-FEW); CLARITY,URINE CLEAR; COLOR,URINE YELLOW; GLUCOSE,URINE 500 mg/dL (NEG); NITRITE,URINE NEG (NEG); RBC,URINE OCC /HPF (0-2); UROBILINOGEN,URINE 0.2 mg/dL (0.2 mg/dL); WBC,URINE OCC /HPF (0-4)
[2021-07-16 05:22] VITALS: BP 139/69
== END 2021-07-16 05:20 | disposition home or self-care (01) ==
LOC: ER 02:39
DX: K80.20 Calculus of gallbladder without cholecystitis without obstruction (principal); J44.9 Chronic obstructive pulmonary disease, unspecified; E11.9 Type 2 diabetes mellitus without complications; M79.7 Fibromyalgia; K21.9 Gastro-esophageal reflux disease without esophagitis; E78.00 Pure hypercholesterolemia, unspecified; I10 Essential (primary) hypertension; G43.909 Migraine, unspecified, not intractable, without status migrainosus; F17.210 Nicotine dependence, cigarettes, uncomplicated; Z87.440 Personal history of urinary (tract) infections; Z88.8 Allergy status to other drugs, medicaments and biological substances
CPT/HCPCS: 36415; 74176; 80053; 81001; 83690; 85025; 96361; 96374; 96375; 99284; J2270; J2405; J7030